=== PATIENT | female | born 1935 | race Caucasian/White ===

== ENCOUNTER 2017-06-11 16:17 | Inpatient (IN) | payer MEDICARE, OTHER ==
[~2017-06-11] VITALS: Ht 165.1 cm; Wt 67.6 kg
[2017-06-11] MEDS ORDERED: IOHEXOL 350 MG/ML 10 ML VIAL (for RAD DIAG) IVCONTRAST ONE (16:18)
[2017-06-11] MEDS ORDERED: SODIUM CHLOR 0.9% 1000 ML INJ 1,000 ML IV ONE ×2 (16:32→18:30)
[2017-06-11] MEDS ORDERED: PIPERACIL-TAZO 4.5 GM PREMIX 100 ML IV STA (16:32)
[2017-06-11] MEDS ORDERED: SODIUM CHLOR 0.9% 1000 ML INJ 800 ML IV ONE (16:32)
[2017-06-11] MEDS ORDERED: ACETAMINOPHEN 325 MG TAB PO ONE (16:45)
[2017-06-11 16:50] VITALS: BP 117/55; PULSE 78; RESP 22; TEMP 100.2; O2SAT 98
[2017-06-11 17:10] LABS: AUTOMATED NEUTROPHIL # 12.5 TH/MM3 (1.8-7.7); HEMATOCRIT 38.6 % (35.0-46.0); HEMOGLOBIN 12.8 GM/DL (11.6-15.3); LYMPH % 1.9 % (9.0-44.0); LYMPHOCYTE # 0.3 TH/MM3 (1.0-4.8); MEAN CELL VOLUME 85.7 FL (80.0-100.0); MEAN CORPUSCULAR HEMOGLOBIN 28.4 PG (27.0-34.0); MEAN CORPUSCULAR HGB CONC 33.2 % (32.0-36.0); MEAN PLATELET VOLUME 9.8 FL (7.0-11.0); MONO % 5.2 % (0.0-8.0); MONOCYTE # 0.7 TH/MM3 (0-0.9); NEUT % 92.9 % (16.0-70.0); PLATELET COUNT 125 TH/MM3 (150-450); RED CELL DISTRIBUTION WIDTH 13.9 % (11.6-17.2); WHITE BLOOD COUNT 13.5 TH/MM3 (4.0-11.0)
[2017-06-11 17:13] LABS: BACTERIA, URINE MANY /hpf; BILIRUBIN, URINE NEG (NEG); BLOOD, URINE SMALL (NEG); GLUCOSE,URINE NEG (NEG); KETONE, URINE TRACE mg/dL (NEG); NITRITE,URINE NEG (NEG); SQUAMOUS EPITHELIAL CELL URINE 1 /hpf (0-5); URINE COLOR YELLOW (YELLW/STRAW); URINE LEUKOCYTE ESTERASE LARGE (NEG)
[2017-06-11 17:15] LABS: INTERNATIONAL NORMALIZED RATIO 1.1 RATIO; PROTHROMBIN TIME - PATIENT 10.7 SEC (9.8-11.6)
--- NOTE | 2017-06-11 17:17 | PD ---
HPI Chief Complaint: Altered Mental Status Time Seen by Provider: 16:21 Travel History International Travel<30 days: No Contact w/Intl Traveler<30days: No History of Present Illness HPI Patient is 81 years old and arrives by EMS from home. The son called because yesterday the patient was able to ambulate throughout the house and conversed normally. Today she was much less active evidently lying in bed essentially inactive. EMS notes that that smell of urine. The patient was noted to have a fever as well the 100.2 axillary. History is limited by the patient who is agitated w altered mental status. PFSH Social History Tobacco Use: No Allergies-Medications (Allergen,Severity, Reaction): Coded Allergies: No Known Allergies (Unverified , 06/11/17) Reported Meds & Prescriptions Reported Meds & Active Scripts Active Active Prescriptions or Reported Medications Unobtainable Review of Systems ROS Limitations: Clinical Condition, Altered Mental Status General / Constitutional: Positive: Fever Physical Exam Narrative GENERAL: 81 yo F, agitated, unable to participate with history and physical exam Vital Signs Date Time Temp Pulse Resp B/P (MAP) Pulse Ox O2 Delivery O2 Flow Rate FiO2 06/11/17 17:27 98 Room Air 06/11/17 16:50 100.2 78 22 117/55 (75) 98 SKIN: Warm and dry. Erythema sacrum. HEAD: Atraumatic. Normocephalic. EYES: Pupils equal and round. No scleral icterus. No injection or drainage. ENT: No nasal bleeding or discharge. Mucous membranes pink and moist. NECK: Trachea midline. No JVD. CARDIOVASCULAR: Rate approx 80. Sinus. RESPIRATORY: No accessory muscle use. Clear to auscultation. Breath sounds equal bilaterally. GASTROINTESTINAL: Abdomen soft, non-tender, nondistended. Hepatic and splenic margins not palpable. MUSCULOSKELETAL: Extremities without clubbing, cyanosis, or edema. No obvious deformities. NEUROLOGICAL: No asymmetry about the face. The patient moving all extremities normally. She screams frequently and does not respond to questions. PSYCHIATRIC: Poor hygiene. Somewhat unkempt. Data Data Last Documented VS Vital Signs Date Time Temp Pulse Resp B/P (MAP) Pulse Ox O2 Delivery O2 Flow Rate FiO2 06/11/17 18:56 88 18 122/80 (94) 98 Room Air 06/11/17 16:50 100.2 VS reviewed Orders Orders Sepsis Workup Initiated (06/11/17 ) Complete Blood Count With Diff (06/11/17 16:32) Comprehensive Metabolic Panel (06/11/17 16:32) Prothrombin Time / Inr (Pt) (06/11/17 16:32) Act Partial Throm Time (Ptt) (06/11/17 16:32) Lactic Acid Sepsis Protocol (06/11/17 16:32) Magnesium (Mg) (06/11/17 16:32) Lipase (06/11/17 16:32) Ckmb (Isoenzyme) Profile (06/11/17 16:32) Troponin I (06/11/17 16:32) Urinalysis - C+S If Indicated (06/11/17 16:32) Blood Culture (06/11/17 16:32) Chest, Single Ap (06/11/17 16:32) Blood Glucose (06/11/17 16:32) Ecg Monitoring (06/11/17 16:32) Iv Access Insert/Monitor (06/11/17 16:32) Oximetry (06/11/17 16:32) Oxygen Administration (06/11/17 16:32) Acetaminophen (Tylenol) (06/11/17 16:45) Ct Abd/Pel W Iv Contrast(Rout) (06/11/17 16:32) Piperacil-Tazo 4.5 Gm Premix (Zosyn 4.5 (06/11/17 16:32) Sodium Chlor 0.9% 1000 Ml Inj (Ns 1000 M (06/11/17 16:32) Sodium Chlor 0.9% 1000 Ml Inj (Ns 1000 M (06/11/17 16:32) Ct Brain W/O Iv Contrast(Rout) (06/11/17 17:15) Urine Culture (06/11/17 16:30) Acetaminophen Supp (Tylenol Supp) (06/11/17 17:30) Vancomycin Inj (Vancomycin Inj) (06/11/17 17:45) CKMB (06/11/17 16:30) CKMB% (06/11/17 16:30) Electrocardiogram (06/11/17 ) Lorazepam Inj (Ativan Inj) (06/11/17 18:30) Sodium Chlor 0.9% 1000 Ml Inj (Ns 1000 M (06/11/17 18:30) Urinary Catheter Insert/Apply (06/11/17 18:17) Lorazepam Inj (Ativan Inj) (06/11/17 18:18) Iohexol 350 Inj (Omnipaque 350 Inj) (06/11/17 16:18) Admit To Inpatient (06/11/17 ) Vital Signs (Adult) Q4H (06/11/17 20:01) Activity Oob With Assistance (06/11/17 20:01) Brick Tester / Telemetry .CONTINUOUS (06/11/17 20:01) Diet Heart Healthy (06/12/17 Breakfast) Sodium Chloride 0.9% Flush (Ns Flush) (06/11/17 20:15) Sodium Chloride 0.9% Flush (Ns Flush) (06/11/17 21:00) Basic Metabolic Panel (Bmp) (06/12/17 06:00) Complete Blood Count With Diff (06/12/17 06:00) Pt Request For Service (06/11/17 20:01) Case Management Consult (06/11/17 20:01) Naloxone Inj (Narcan Inj) (06/11/17 20:15) Inpatient Certification (06/11/17 ) Vancomycin Consult Pharmacy (Vancomycin (06/11/17 20:15) Admit Order (Ed Use Only) (06/11/17 ) Vital Signs (Adult) Q4H (06/11/17 20:05) Activity Bed Rest (06/11/17 20:05) Notify Dr: Other (06/11/17 20:05) Piperacil-Tazo 4.5 Gm Premix (Zosyn 4.5 (06/12/17 00:00) Labs Laboratory Tests Test 06/11/17 16:30 White Blood Count 13.5 TH/MM3 Red Blood Count 4.50 MIL/MM3 Hemoglobin 12.8 GM/DL Hematocrit 38.6 % Mean Corpuscular Volume 85.7 FL Mean Corpuscular Hemoglobin 28.4 PG Mean Corpuscular Hemoglobin Concent 33.2 % Red Cell Distribution Width 13.9 % Platelet Count 125 TH/MM3 Mean Platelet Volume 9.8 FL Neutrophils (%) (Auto) 92.9 % Lymphocytes (%) (Auto) 1.9 % Monocytes (%) (Auto) 5.2 % Eosinophils (%) (Auto) 0.0 % Basophils (%) (Auto) 0.0 % Neutrophils # (Auto) 12.5 TH/MM3 Lymphocytes # (Auto) 0.3 TH/MM3 Monocytes # (Auto) 0.7 TH/MM3 Eosinophils # (Auto) 0.0 TH/MM3 Basophils # (Auto) 0.0 TH/MM3 CBC Comment DIFF FINAL Differential Comment Prothrombin Time 10.7 SEC Prothromb Time International Ratio 1.1 RATIO Activated Partial Thromboplast Time 24.7 SEC Urine Color YELLOW Urine Turbidity HAZY Urine pH 7.0 Urine Specific [place] 1.023 Urine Protein 30 mg/dL Urine Glucose (UA) NEG mg/dL Urine Ketones TRACE mg/dL Urine Occult Blood SMALL Urine Nitrite NEG Urine Bilirubin NEG Urine Urobilinogen LESS THAN 2.0 MG/DL Urine Leukocyte Esterase LARGE Urine RBC 1 /hpf Urine WBC 107 /hpf Urine Squamous Epithelial Cells 1 /hpf Urine Bacteria MANY /hpf Urine Granular Casts 3 /lpf Microscopic Urinalysis Comment CATH-CULTURE IND Blood Urea Nitrogen 34 MG/DL Creatinine 1.07 MG/DL Random Glucose 109 MG/DL Total Protein 7.2 GM/DL Albumin 2.8 GM/DL Calcium Level 7.7 MG/DL Magnesium Level 1.9 MG/DL Alkaline Phosphatase 67 U/L Aspartate Amino Transf (AST/SGOT) 86 U/L Alanine Aminotransferase (ALT/SGPT) 47 U/L Total Bilirubin 0.3 MG/DL Sodium Level 135 MEQ/L Potassium Level 4.5 MEQ/L Chloride Level 103 MEQ/L Carbon Dioxide Level 22.3 MEQ/L Anion Gap 10 MEQ/L Estimat Glomerular Filtration Rate 49 ML/MIN Lactic Acid Level 1.9 mmol/L Total Creatine Kinase 1584 U/L Creatine Kinase MB 10.0 NG/ML Creatine Kinase MB % 0.6 % Troponin I 1.40 NG/ML Lipase 93 U/L [facility] Medical Decision Making Medical Screen Exam Complete: Yes Emergency Medical Condition: Yes Differential Diagnosis Sepsis, severe sepsis, metabolic disarray, anemia, intracranial trauma or disease Narrative Course CBC & BMP Diagram 06/11/17 16:30 Total Protein 7.2, Albumin 2.8 L, Calcium Level 7.7 L, Magnesium Level 1.9, Alkaline Phosphatase 67, Aspartate Amino Transf (AST/SGOT) 86 H, Alanine Aminotransferase (ALT/SGPT) 47, Total Bilirubin 0.3 Neutrophils 93% Total CK is 1584 Lactic acid 1.9 Urinalysis shows a UTI EKG sinus tachycardia rate 100, LVH criteria The troponin is 1.4 The lipase is 93 In the setting of an elevated creatinine kinase 5084 and with mild renal insufficiency the elevated troponin at 1.4 is considered nonspecific 3 L of normal saline started. Zosyn and vancomycin started. The patient has a large density in the left chest concerning for pneumonia. CT abdomen and pelvis pending at time of dictation. Case discussed with the oncoming provider with plan to follow up CT results and admit patient medicine service. Critical Care Narrative Aggregate critical care time was 35 minutes. Time to perform other separately billable procedures was not included in the critical care time. My time did not include minutes spent treating any other patients simultaneously or on activities that did not directly contribute to the patient's treatment. The services I provided to this patient were to treat and/or prevent clinically significant deterioration that could result in: septic shock, MODS I provided critical care services requiring my management, as noted below: Chart data review, documentation time, medication orders and management, vital sign assessments/reviewing monitor data, ordering and reviewing lab tests, ordering and interpreting/reviewing x-rays and diagnostic studies, care of the patient and discussion of the patient with the admitting physicians. Sepsis Criteria SIRS Criteria (2 or more): Heart rate over 90, WBC > 00468, < 4000 or > 10% bands Sepsis Criteria (SIRS+source): Infect source susp/known Diagnosis Primary Impression: PNA (pneumonia) Qualified Codes: J18.9 - Pneumonia, unspecified organism Additional Impressions: UTI (urinary tract infection) Qualified Codes: N30.00 - Acute cystitis without hematuria Rhabdomyolysis Sepsis Admitting Information Admitting Physician Requests: Admit Scripts Unable to Obtain Active Prescriptions or Reported John Lombardi MD Jun 11, 2017 17:17
[2017-06-11 17:18] LABS: ALBUMIN 2.8 GM/DL (3.4-5.0); ALT (GPT) 47 U/L (10-53); AST (GOT) 86 U/L (15-37); BICARBONATE 22.3 MEQ/L (21.0-32.0); BLOOD UREA NITROGEN 34 MG/DL (7-18); CALCIUM 7.7 MG/DL (8.5-10.1); CHLORIDE 103 MEQ/L (98-107); CREATININE 1.07 MG/DL (0.50-1.00); GLOMERULAR FILTRATION RATE 49 ML/MIN (>89); GLUCOSE,RANDOM 109 MG/DL (74-106); MAGNESIUM 1.9 MG/DL (1.5-2.5); SODIUM (NA) 135 MEQ/L (136-145)
[2017-06-11] MEDS ORDERED: ACETAMINOPHEN 650 MG SUPP RECTAL ONE (17:30)
--- NOTE | 2017-06-11 17:30 | RADRPT ---
EXAM DATE/TIME: 06/11/2017 16:50 [facility] COMPARISON: No previous studies available for comparison. INDICATIONS : Altered mental status. MEDICAL HISTORY : None. SURGICAL HISTORY : None. ENCOUNTER: Initial ACUITY: 1 day PAIN SCORE: Non-responsive. LOCATION: Bilateral chest FINDINGS: Patchy opacity is noted throughout the left lung consistent with probable pneumonia. Clinical correla tion is recommended. The right lung is clear. The heart is normal. Degenerative changes and scoliosis of the thoracic spine are noted. CONCLUSION: 1. Patchy opacity within the left lung consistent with probable pneumonia. Correlation is recommended . 2. Degenerative changes and scoliosis of the thoracic spine. Efren Gutierrez MD on June 11, 2017 at 17:27 Board Certified Radiologist. This report was verified electronically.
[2017-06-11 17:31] LABS: ALKALINE PHOSPHATASE 67 U/L (45-117); TOTAL BILIRUBIN ADULT 0.3 MG/DL (0.2-1.0); TOTAL PROTEIN 7.2 GM/DL (6.4-8.2)
[2017-06-11] MEDS ORDERED: VANCOMYCIN INJ 1,250 MG in SODIUM CHLOR 0.9% 250 ML INJ 250 ML IV ONE (17:45)
[2017-06-11 18:00] VITALS: O2SAT 98
[2017-06-11] MEDS ORDERED: LORazepam 2 MG/ML VIAL ONE (18:18)
[2017-06-11] MEDS ORDERED: LORazepam 2 MG/ML VIAL IV PUSH ONE (18:30)
[2017-06-11 18:56] VITALS: BP 122/80; PULSE 88; RESP 18; O2SAT 98
--- NOTE | 2017-06-11 18:57 | RADRPT ---
EXAM DATE/TIME: 06/11/2017 18:25 [facility] COMPARISON: No previous studies available for comparison. INDICATIONS : Altered mental status. RADIATION DOSE: 56.35 CTDIvol (mGy) ; Patient motion MEDICAL HISTORY : Non-responsive. SURGICAL HISTORY : Non-responsive. ENCOUNTER: Initial ACUITY: 1 day PAIN SCALE: Non-responsive LOCATION: cranial TECHNIQUE: Multiple contiguous axial images were obtained of the head. Using automated exposure control and adj ustment of the mA and/or kV according to patient size, radiation dose was kept as low as reasonably a chievable to obtain optimal diagnostic quality images. DICOM format image data is available electro nically for review and comparison. FINDINGS: There is marked central and cortical atrophy with dilatation of ventricular and sulcal spaces. There is no parenchymal hemorrhage, acute infarction or mass lesion identified. There are no extra-axial fluid collections appreciated. The posterior fossa is unremarkable with midline fourth ventricle. T he portion of the orbits and paranasal sinuses visualized are unremarkable. CONCLUSION: No acute findings. Atrophy. David Camacho MD on June 11, 2017 at 18:54 Board Certified Radiologist. This report was verified electronically.
--- NOTE | 2017-06-11 19:05 | RADRPT ---
EXAM DATE/TIME: 06/11/2017 18:37 [facility] COMPARISON: No previous studies available for comparison. INDICATIONS : Fever, altered mental status. IV CONTRAST: 60 cc Omnipaque 350 (iohexol) IV ORAL CONTRAST: No oral contrast ingested. RADIATION DOSE: 8.37 CTDIvol (mGy) MEDICAL HISTORY : Non-responsive. SURGICAL HISTORY : Non-responsive. ENCOUNTER: Initial ACUITY: 1 day PAIN SCALE: Non-responsive LOCATION: lower quadrant TECHNIQUE: Volumetric scanning of the abdomen and pelvis was performed. Using automated exposure control and ad justment of the mA and/or kV according to patient size, radiation dose was kept as low as reasonably achievable to obtain optimal diagnostic quality images. DICOM format image data is available electro nically for review and comparison. FINDINGS: There is a confluent area of consolidation at the left lung base most consistent with bronchopneumoni a or aspiration. Mild right basilar opacity adjacent to a large hiatal hernia, probably compressive a telectasis. Bilobed 2 cm cyst left lobe liver. No acute findings in the liver, spleen, right adrenal or pancreas. Approximately 1.5 cm nodule left adrenal. Multiple bilateral nonobstructing renal calcifications whi ch appear to be mostly vascular. There is severe sigmoid diverticulosis. No definite evidence for diverticulitis. Right-sided bladder diverticulum measures about 3 cm in diameter. No acute bony abnormality. CONCLUSION: 1. Dense consolidation in the left lung base most characteristic of pneumonia or aspiration. 2. Large hiatal hernia. 3. Nonobstructing renal calcifications. 4. Severe sigmoid diverticulosis. 5. Right-sided bladder diverticulum. David Camacho MD on June 11, 2017 at 18:59 Board Certified Radiologist. This report was verified electronically.
--- NOTE | 2017-06-11 19:44 | PD ---
Physical Exam Date Seen by Provider: Jun 11, 2017 Narrative Care assumed from Dr. Martinez at [address] followed by admission. The patient presented to us with acutely altered mental status. She has been found to be uroseptic. Data Data Last Documented VS Vital Signs Date Time Temp Pulse Resp B/P (MAP) Pulse Ox O2 Delivery O2 Flow Rate FiO2 06/11/17 18:56 88 18 122/80 (94) 98 Room Air 06/11/17 16:50 100.2 Orders Orders Sepsis Workup Initiated (06/11/17 ) Complete Blood Count With Diff (06/11/17 16:32) Comprehensive Metabolic Panel (06/11/17 16:32) Prothrombin Time / Inr (Pt) (06/11/17 16:32) Act Partial Throm Time (Ptt) (06/11/17 16:32) Lactic Acid Sepsis Protocol (06/11/17 16:32) Magnesium (Mg) (06/11/17 16:32) Lipase (06/11/17 16:32) Ckmb (Isoenzyme) Profile (06/11/17 16:32) Troponin I (06/11/17 16:32) Urinalysis - C+S If Indicated (06/11/17 16:32) Blood Culture (06/11/17 16:32) Chest, Single Ap (06/11/17 16:32) Blood Glucose (06/11/17 16:32) Ecg Monitoring (06/11/17 16:32) Iv Access Insert/Monitor (06/11/17 16:32) Oximetry (06/11/17 16:32) Oxygen Administration (06/11/17 16:32) Acetaminophen (Tylenol) (06/11/17 16:45) Ct Abd/Pel W Iv Contrast(Rout) (06/11/17 16:32) Piperacil-Tazo 4.5 Gm Premix (Zosyn 4.5 (06/11/17 16:32) Sodium Chlor 0.9% 1000 Ml Inj (Ns 1000 M (06/11/17 16:32) Sodium Chlor 0.9% 1000 Ml Inj (Ns 1000 M (06/11/17 16:32) Ct Brain W/O Iv Contrast(Rout) (06/11/17 17:15) Urine Culture (06/11/17 16:30) Acetaminophen Supp (Tylenol Supp) (06/11/17 17:30) Vancomycin Inj (Vancomycin Inj) (06/11/17 17:45) CKMB (06/11/17 16:30) CKMB% (06/11/17 16:30) Electrocardiogram (06/11/17 ) Lorazepam Inj (Ativan Inj) (06/11/17 18:30) Sodium Chlor 0.9% 1000 Ml Inj (Ns 1000 M (06/11/17 18:30) Urinary Catheter Insert/Apply (06/11/17 18:17) Lorazepam Inj (Ativan Inj) (06/11/17 18:18) Iohexol 350 Inj (Omnipaque 350 Inj) (06/11/17 16:18) Admit To Inpatient (06/11/17 ) Vital Signs (Adult) Q4H (06/11/17 20:01) Activity Oob With Assistance (06/11/17 20:01) Student Development Coordinator / Telemetry .CONTINUOUS (06/11/17 20:01) Diet Heart Healthy (06/12/17 Breakfast) Sodium Chloride 0.9% Flush (Ns Flush) (06/11/17 20:15) Sodium Chloride 0.9% Flush (Ns Flush) (06/11/17 21:00) Basic Metabolic Panel (Bmp) (06/12/17 06:00) Complete Blood Count With Diff (06/12/17 06:00) Pt Request For Service (06/11/17 20:01) Case Management Consult (06/11/17 20:01) Naloxone Inj (Narcan Inj) (06/11/17 20:15) Inpatient Certification (06/11/17 ) Vancomycin Consult Pharmacy (Vancomycin (06/11/17 20:15) Piperacil-Tazo 4.5 Gm Premix (Zosyn 4.5 (06/11/17 23:55) Labs Laboratory Tests Test 06/11/17 16:30 White Blood Count 13.5 TH/MM3 Red Blood Count 4.50 MIL/MM3 Hemoglobin 12.8 GM/DL Hematocrit 38.6 % Mean Corpuscular Volume 85.7 FL Mean Corpuscular Hemoglobin 28.4 PG Mean Corpuscular Hemoglobin Concent 33.2 % Red Cell Distribution Width 13.9 % Platelet Count 125 TH/MM3 Mean Platelet Volume 9.8 FL Neutrophils (%) (Auto) 92.9 % Lymphocytes (%) (Auto) 1.9 % Monocytes (%) (Auto) 5.2 % Eosinophils (%) (Auto) 0.0 % Basophils (%) (Auto) 0.0 % Neutrophils # (Auto) 12.5 TH/MM3 Lymphocytes # (Auto) 0.3 TH/MM3 Monocytes # (Auto) 0.7 TH/MM3 Eosinophils # (Auto) 0.0 TH/MM3 Basophils # (Auto) 0.0 TH/MM3 CBC Comment DIFF FINAL Differential Comment Prothrombin Time 10.7 SEC Prothromb Time International Ratio 1.1 RATIO Activated Partial Thromboplast Time 24.7 SEC Urine Color YELLOW Urine Turbidity HAZY Urine pH 7.0 Urine Specific [place] 1.023 Urine Protein 30 mg/dL Urine Glucose (UA) NEG mg/dL Urine Ketones TRACE mg/dL Urine Occult Blood SMALL Urine Nitrite NEG Urine Bilirubin NEG Urine Urobilinogen LESS THAN 2.0 MG/DL Urine Leukocyte Esterase LARGE Urine RBC 1 /hpf Urine WBC 107 /hpf Urine Squamous Epithelial Cells 1 /hpf Urine Bacteria MANY /hpf Urine Granular Casts 3 /lpf Microscopic Urinalysis Comment CATH-CULTURE IND Blood Urea Nitrogen 34 MG/DL Creatinine 1.07 MG/DL Random Glucose 109 MG/DL Total Protein 7.2 GM/DL Albumin 2.8 GM/DL Calcium Level 7.7 MG/DL Magnesium Level 1.9 MG/DL Alkaline Phosphatase 67 U/L Aspartate Amino Transf (AST/SGOT) 86 U/L Alanine Aminotransferase (ALT/SGPT) 47 U/L Total Bilirubin 0.3 MG/DL Sodium Level 135 MEQ/L Potassium Level 4.5 MEQ/L Chloride Level 103 MEQ/L Carbon Dioxide Level 22.3 MEQ/L Anion Gap 10 MEQ/L Estimat Glomerular Filtration Rate 49 ML/MIN Lactic Acid Level 1.9 mmol/L Total Creatine Kinase 1584 U/L Creatine Kinase MB 10.0 NG/ML Creatine Kinase MB % 0.6 % Troponin I 1.40 NG/ML Lipase 93 U/L [facility] Supervised Visit with EILEEN: No Narrative Course Vital Signs Date Time Temp Pulse Resp B/P (MAP) Pulse Ox O2 Delivery O2 Flow Rate FiO2 06/11/17 18:56 88 18 122/80 (94) 98 Room Air 06/11/17 18:00 98 Room Air 06/11/17 17:27 98 Room Air 06/11/17 16:50 100.2 78 22 117/55 (75) 98 CBC & BMP Diagram 06/11/17 16:30 Total Protein 7.2, Albumin 2.8 L, Calcium Level 7.7 L, Magnesium Level 1.9, Alkaline Phosphatase 67, Aspartate Amino Transf (AST/SGOT) 86 H, Alanine Aminotransferase (ALT/SGPT) 47, Total Bilirubin 0.3 UA>>large LE, 107 WBCs, many bact. Last Impressions Head CT 06/11/17 1715 Signed Impressions: Service Date/Time: May 18:25 - CONCLUSION: No acute findings. Atrophy. David Camacho MD Chest X-Ray 06/11/17 1632 Signed Impressions: Service Date/Time: May 16:50 - CONCLUSION: 1. Patchy opacity within the left lung consistent with probable pneumonia. Correlation is recommended. 2. Degenerative changes and scoliosis of the thoracic spine. Efren Gutierrez MD Abdomen/Pelvis CT 06/11/17 1632 Signed Impressions: Service Date/Time: May 18:37 - CONCLUSION: 1. Dense consolidation in the left lung base most characteristic of pneumonia or aspiration. 2. Large hiatal hernia. 3. Nonobstructing renal calcifications. 4. Severe sigmoid diverticulosis. 5. Right-sided bladder diverticulum. David Camacho MD The patient has been empirically treated with Zosyn and vancomycin. Diagnosis Primary Impression: PNA (pneumonia) Qualified Codes: J18.9 - Pneumonia, unspecified organism Additional Impressions: Rhabdomyolysis Qualified Codes: M62.82 - Rhabdomyolysis Sepsis Qualified Codes: A41.9 - Sepsis, unspecified organism UTI (urinary tract infection) Qualified Codes: N30.00 - Acute cystitis without hematuria Admitting Information Admitting Physician Requests: Admit Scripts Unable to Obtain Active Prescriptions or Reported Meds Condition: Stable Mary Montana MD Jun 11, 2017 19:44
[2017-06-11] MEDS ORDERED: Vancomycin Consult Pharmacy 1 EA OTHER SCH (20:15)
[2017-06-11] MEDS ORDERED: NALOXONE HCL 0.4 MG/ML AMP IV PUSH PRN (20:15)
[2017-06-11] MEDS ORDERED: SODIUM CHLORIDE 0.9% FLUSH 10 ML FLUSH IV FLUSH PRN (20:15)
[2017-06-11 20:23] VITALS: BP 112/58; PULSE 84; RESP 16; O2SAT 98
--- NOTE | 2017-06-11 20:53 | HHI.HP ---
[facility] Admission Diagnosis pneumonia, UTI, rhabdo Diagnoses: Travel History International Travel<30 Days: No Contact w/Intl Traveler <30 Da: No Traveled to Known Affected Are: No History of Present Illness History from patient, ER physician communication, patient's son Efren over the phone, and review of medical records. Patient is somewhat of a poor historian. She is awake and alert but she is quite tired and would answer questions whenever she feels like. She was also given Ativan in ER for sedation which limits her history. Patient's son Efren is also not much of a good historian. It was quite hard to reach him throughout the night and when I got a chance to speak to him over the phone, he was quite slow in response. He however reports that patient has no Prior medical history. She used to go to Dr. Ybarra many years ago but has stopped going there. She is not on any medications at home. When asked about her surgical history, he reports that she has had colonoscopies prior. He reports that he was worried about her because she was not eating well. He stated she stopped eating " a long time ago". He then stated that she fell down "a bunch of times" within the past 1 week. He denies any vomiting episodes. He does not think that she had diarrhea. He reports he was the one cleaning her up mostly. He denies any fever. He states that he was not able to bring her by his car because she was not able to stand up. He therefore called 911. Per ER triage note, " pt from home, presents via evac altered. dirty, unkempt, full of urine and stool. smashed banana in hair. per evac, pt lives at home with son." Patient herself tells me that she did fall. She denies every symptoms on review of systems apart from shortness of breath. She also seems to be in pain during my interview and is moaning. However she is not able to pinpoint where. Review of Systems Except as stated in HPI: all other systems reviewed are Neg Past Family Social History Past Medical History None according to patient's son Past Surgical History Colonoscopies per son Reported Medications None Allergies: Coded Allergies: No Known Allergies (Unverified , 06/11/17) Family History None that patient is aware of Social History Denies smoking/alcohol abuse/drug abuse Physical Exam Vital Signs Vital Signs Date Time Temp Pulse Resp B/P (MAP) Pulse Ox O2 Delivery O2 Flow Rate FiO2 06/11/17 20:23 84 16 112/58 (76) 98 Room Air 06/11/17 18:56 88 18 122/80 (94) 98 Room Air 06/11/17 18:00 98 Room Air 06/11/17 17:27 98 Room Air 06/11/17 16:50 100.2 78 22 117/55 (75) 98 Physical Exam GENERAL: This is a elderly lady, in moderate distress from illness/pain. Saturating 90% on room air. Blood pressure 112/80. Pulse 80 SKIN: No rashes, ecchymoses or lesions. Cool and dry. HEAD: Atraumatic. Normocephalic. No temporal or scalp tenderness. EYES: No scleral icterus. No injection or drainage. ENT: Nose without bleeding, purulent drainage or septal hematoma. Airway patent. NECK: Trachea midline. No JVD. Supple, nontender, no meningeal signs. CARDIOVASCULAR: Regular rate and rhythm without gallops, or rubs. Systolic murmur throughout the precordium. Radiation to neck RESPIRATORY: Bilaterally decreased air entry. GASTROINTESTINAL: Abdomen soft, non-tender, nondistended. No guarding. MUSCULOSKELETAL: Extremities without clubbing, cyanosis, or edema. No calf tenderness. NEUROLOGICAL: Awake and alert although does not really want to answer questions much due to acute illness. Seems to be in pain. Motor and sensory grossly within normal limits. Normal speech.. Laboratory Laboratory Tests Test 06/11/17 16:30 White Blood Count 13.5 Red Blood Count 4.50 Hemoglobin 12.8 Hematocrit 38.6 Mean Corpuscular Volume 85.7 Mean Corpuscular Hemoglobin 28.4 Mean Corpuscular Hemoglobin Concent 33.2 Red Cell Distribution Width 13.9 Platelet Count 125 Mean Platelet Volume 9.8 Neutrophils (%) (Auto) 92.9 Lymphocytes (%) (Auto) 1.9 Monocytes (%) (Auto) 5.2 Eosinophils (%) (Auto) 0.0 Basophils (%) (Auto) 0.0 Neutrophils # (Auto) 12.5 Lymphocytes # (Auto) 0.3 Monocytes # (Auto) 0.7 Eosinophils # (Auto) 0.0 Basophils # (Auto) 0.0 CBC Comment DIFF FINAL Differential Comment Prothrombin Time 10.7 Prothromb Time International Ratio 1.1 Activated Partial Thromboplast Time 24.7 Urine Color YELLOW Urine Turbidity HAZY Urine pH 7.0 Urine Specific [place] 1.023 Urine Protein 30 Urine Glucose (UA) NEG Urine Ketones TRACE Urine Occult Blood SMALL Urine Nitrite NEG Urine Bilirubin NEG Urine Urobilinogen LESS THAN 2.0 Urine Leukocyte Esterase LARGE Urine RBC 1 Urine WBC 107 Urine Squamous Epithelial Cells 1 Urine Bacteria MANY Urine Granular Casts 3 Microscopic Urinalysis Comment CATH-CULTURE IND Blood Urea Nitrogen 34 Creatinine 1.07 Random Glucose 109 Total Protein 7.2 Albumin 2.8 Calcium Level 7.7 Magnesium Level 1.9 Alkaline Phosphatase 67 Aspartate Amino Transf (AST/SGOT) 86 Alanine Aminotransferase (ALT/SGPT) 47 Total Bilirubin 0.3 Sodium Level 135 Potassium Level 4.5 Chloride Level 103 Carbon Dioxide Level 22.3 Anion Gap 10 Estimat Glomerular Filtration Rate 49 Lactic Acid Level 1.9 Total Creatine Kinase 1584 Creatine Kinase MB 10.0 Creatine Kinase MB % 0.6 Troponin I 1.40 Lipase 93 Date/Time Source Procedure Growth Status 06/11/17 16:35 Blood Peripheral Aerobic Blood Culture Pending Received 06/11/17 16:35 Blood Peripheral Anaerobic Blood Culture Pending Received 06/11/17 16:30 Urine Clean Catch Urine Culture Pending Received Result Diagram: 06/11/17 1630 06/11/17 1630 Imaging Last [address] 06/11/17 1715 Signed Impressions: Service Date/Time: May 18:25 - CONCLUSION: No acute findings. Atrophy. David Camacho MD Chest X-Ray 06/11/17 1632 Signed Impressions: Service Date/Time: May 16:50 - CONCLUSION: 1. Patchy opacity within the left lung consistent with probable pneumonia. Correlation is recommended. 2. Degenerative changes and scoliosis of the thoracic spine. Efren Gutierrez MD Abdomen/Pelvis CT 06/11/17 1632 Signed Impressions: Service Date/Time: May 18:37 - CONCLUSION: 1. Dense consolidation in the left lung base most characteristic of pneumonia or aspiration. 2. Large hiatal hernia. 3. Nonobstructing renal calcifications. 4. Severe sigmoid diverticulosis. 5. Right-sided bladder diverticulum. David Camacho MD Lower Extremity CT 06/11/17 0000 Signed Impressions: Service Date/Time: May 22:06 - CONCLUSION: 1. Moderate to severe osteoarthritis. Trace joint fluid. David Camacho MD Lower Extremity CT 06/11/17 0000 Signed Impressions: Service Date/Time: May 22:06 - CONCLUSION: 1. No acute femur fracture. David Camacho MD Caprini VTE Risk Assessment Caprini VTE Risk Assessment: Mod/High Risk (score >= 2) Caprini Risk Assessment Model Point Value = 1 Point Value = 2 Point Value = 3 Point Value = 5 Age 41-60 Minor surgery BMI > 25 kg/m2 Swollen legs Varicose veins or History of unexplained or recurrent spontaneous Oral contraceptives or hormone replacement Sepsis (< 1 month) Serious lung disease, including pneumonia (< 1 month) Abnormal pulmonary function Acute myocardial infarction Congestive heart failure (< 1 month) History of inflammatory bowel disease Medical patient at bed rest Age 61-74 Arthroscopic surgery Major open surgery (> 45 min) Laparoscopic surgery (> 45 min) Malignancy Confined to bed (> 72 hours) Immobilizing plaster cast Central venous access Age >= 75 History of VTE Family history of VTE Factor V Leiden Prothrombin [id number] Lupus anticoagulant Anticardiolipin antibodies Elevated serum homocysteine Heparin-induced thrombocytopenia Other congenital or acquired thrombophilia Stroke (< 1 month) Elective arthroplasty Hip, pelvis, or leg fracture Acute spinal cord injury (< 1 month) Prophylaxis Regimen Total Risk Factor Score Risk Level Prophylaxis Regimen 0-1 Low Early ambulation 2 Moderate Order ONE of the following: *Sequential Compression Device (SCD) *Heparin 5000 units SQ BID 3-4 Higher Order ONE of the following medications: *Heparin 5000 units SQ TID *Enoxaparin/Lovenox 40 mg SQ daily (WT < 150 kg, CrCl > 30 mL/min) *Enoxaparin/Lovenox 30 mg SQ daily (WT < 150 kg, CrCl > 10-29 mL/min) *Enoxaparin/Lovenox 30 mg SQ BID (WT < 150 kg, CrCl > 30 mL/min) AND/OR *Sequential Compression Device (SCD) 5 or more Highest Order ONE of the following medications: *Heparin 5000 units SQ TID (Preferred with Epidurals) *Enoxaparin/Lovenox 40 mg SQ daily (WT < 150 kg, CrCl > 30 mL/min) *Enoxaparin/Lovenox 30 mg SQ daily (WT < 150 kg, CrCl > 10-29 mL/min) *Enoxaparin/Lovenox 30 mg SQ BID (WT < 150 kg, CrCl > 30 mL/min) AND *Sequential Compression Device (SCD) Assessment and Plan Assessment and Plan Impression: Sepsis Pneumonia UTI Dehydration Rhabdomyolysis Acute renal failure Leukocytosis with left shift Hypoxia secondary to pneumonia Aortic stenotic murmur Plan: Patient received 2 L normal saline bolus in ER. She was started on vancomycin, Zosyn per creatinine clearance and levels. At this point, I would continue same antibiotic regimen. We'll follow blood culture and urine culture results. Not suspecting meningitis. Patient is quite awake and alert although she is a poor historian. She denies any headache/neck pain/photophobia. Oxygen supplementation. Would obtain echocardiogram as patient has aortic stenotic murmur. However unlikely that this is endocarditis. We'll follow renal function and CPKs post hydration. We'll reassess hydration status in the morning since patient is elderly, with aortic stenosis murmur and possibly having concomitant CHF. Patient is also receiving IV antibiotics. Echocardiogram in a.m. DVT prophylaxis on heparin. GI prophylaxis on pantoprazole. Discussed Condition With patient, her son, ER nurse, ER MD Physician Certification 2 Midnight Certification Type: Admission for Inpatient Services Order for Inpatient Services The services are ordered in accordance with Medicare regulations or non- Medicare payer requirements, as applicable. In the case of services not specified as inpatient-only, they are appropriately provided as inpatient services in accordance with the 2-midnight benchmark. Estimated LOS (days): 4 days is the estimated time the patient will need to remain in the hospital, assuming treatment plan goals are met and no additional complications. Post-Hospital Plan: Home Casimiro Nicholas MD Jun 11, 2017 20:53
[2017-06-11] MEDS: [UNRECOGNIZED DRUG - REMARK] SCH (21:30)
[2017-06-11 21:37] VITALS: BP_SYST 123; BP_SYST 138; BP_DIAS 66; BP_DIAS 71; PULSE 74; PULSE 78; RESP 18; TEMP 97.2; TEMP 98.9; O2SAT 94; O2SAT 96
[2017-06-11 21:48] VITALS: BP 138/71; PULSE 74; RESP 18; TEMP 98.9; O2SAT 96
--- NOTE | 2017-06-11 22:44 | RADRPT ---
EXAM DATE/TIME: 06/11/2017 22:06 [facility] COMPARISON: No previous studies available for comparison. INDICATIONS : Trauma, fall. RADIATION DOSE: 11.38 CTDIvol (mGy) ; Combined studies MEDICAL HISTORY : Non-responsive. SURGICAL HISTORY : Non-responsive. ENCOUNTER: Initial ACUITY: 1 day PAIN SCALE: Non-responsive LOCATION: Right leg TECHNIQUE: Volumetric scanning of the femur was performed. Using automated exposure control and adjustment of t he mA and/or kV according to patient size, radiation dose was kept as low as reasonably achievable to obtain optimal diagnostic quality images. DICOM format image data is available electronically for review and comparison. FINDINGS: No acute fracture seen. Osteoarthritis of the knee joint and severe osteoarthritis at the patellofemo ral joint. CONCLUSION: 1. No acute femur fracture. David Camacho MD on June 11, 2017 at 22:39 Board Certified Radiologist. This report was verified electronically.
--- NOTE | 2017-06-11 22:45 | RADRPT ---
EXAM DATE/TIME: 06/11/2017 22:06 [facility] COMPARISON: No previous studies available for comparison. INDICATIONS : Trauma, fall. RADIATION DOSE: 11.38 CTDIvol (mGy) ; Combined studies MEDICAL HISTORY : Non-responsive. SURGICAL HISTORY : Non-responsive. ENCOUNTER: Initial ACUITY: 1 day PAIN SCALE: Non-responsive LOCATION: Right knee TECHNIQUE: Volumetric scanning of the knee was performed. Using automated exposure control and adjustment of th e mA and/or kV according to patient size, radiation dose was kept as low as reasonably achievable to obtain optimal diagnostic quality images. DICOM format image data is available electronically for re view and comparison. FINDINGS: Mild to moderate osteoarthritis of the knee joint. Severe osteoarthritis at the patellofemoral joint with lateral subluxation. Trace joint fluid. No acute fracture identified CONCLUSION: 1. Moderate to severe osteoarthritis. Trace joint fluid. David Camacho MD on June 11, 2017 at 22:41 Board Certified Radiologist. This report was verified electronically.
[2017-06-12 00:10] VITALS: BP 129/76; PULSE 79; RESP 20; TEMP 97.8; O2SAT 92
[2017-06-12] MEDS: SODIUM CHLORIDE 0.9% FLUSH 10 ML FLUSH IV FLUSH SCH ×3 (01:09→22:38)
[2017-06-12] MEDS: PIPERACIL-TAZO 4.5 GM PREMIX 100 ML IV SCH ×5 (01:09→22:36)
[2017-06-12] MEDS: [UNRECOGNIZED DRUG - REMARK] SCH (01:10)
[2017-06-12 05:20] VITALS: BP 118/67; PULSE 80; RESP 20; TEMP 98.7; O2SAT 91
[2017-06-12 09:00] VITALS: BP 101/56; PULSE 74; RESP 16; TEMP 97.5; O2SAT 92
[2017-06-12] MEDS: PANTOPRAZOLE SOD 40 MG DELAYED RELEASE TAB PO SCH (09:14)
[2017-06-12] MEDS: HEPARIN SODIUM - SQ 10,000 UNITS/ML VIAL SQ SCH ×2 (09:14→22:39)
--- NOTE | 2017-06-12 11:05 | PD.CONS ---
Consult Service Palliative Care . Consult Requested By . Primary Care Physician Unknown Used to see Tate, but I do not believe she has seen a physician in years. . Reason for Consultation a. To assist with evaluation and management of symptoms including: dyspnea ; generalized pain; confusion b. To assist medical decision maker(s) with: better understanding of current medical conditions; weighing benefits/burdens of medical treatment options; making medical treatment decisions. . HPI History of Present Illness It is currently impossible to obtain a good history on this patient. The patient is quite confused. Her son who was at the bedside at the time of my visit, also appears to have altered mental status and may be quite ill himself. I arranged to have him taken to the emergency department while I was at the bedside. The history below is taken from the limited medical records available and piecing some information together from the son. I have no idea if the information from the son is reliable or not. This is the first [facility] hospitalization for this 81-year-old female who is past history remains a mystery as neither her nor her son are able to provide much information. Son reports that the patient is normally verbal but confused and only recognizes him intermittently. When I ask what prompted the son to call the paramedics, he tells me that his mother asked him to do so. I asked if she was painful or appeared short of breath and he said he did not know. The emergency department doctors were told that the patient had been able to ambulate up until recently, but the son tells me the patient may have been nonambulatory and bedbound for months if not years. As best I can tell, the patient lives with her son who is unemployed and is her full-time caregiver. Son reports he has been unable to bathe her. He usually tries to carry her to the bathroom. Son is able to do the grocery shopping and feeds his mother but he told Dr. Nicholas that her appetite have been greatly diminished of late. There have also been multiple falls recently. Per the son, the patient had not been having fevers, vomiting, diarrhea. The patient has not seen a physician for possibly years. The son shares that the the household is entirely dependent on Ms Moffett's Social Security check which is direct deposited. Upon arrival in the emergency department the patient was agitated. EMS noted the smell of urine on arrival. The ER triage note indicated that upon arrival the patient was dirty, unkempt, full of urine and stool, and with smashed banana in her hair. Initial vital signs in the emergency department were as follows--> temperature 100.2; pulse 78; respiratory rate 22; blood pressure 117/55; pulse oximetry 98% on room air Initial physical examination by the emergency department store salesperson revealed the following--> the patient was somewhat unkempt with poor hygiene. The patient was screaming frequently and was unable to respond to questions. There is erythema overlying the sacrum. Mucous membranes were moist. Lungs were clear to auscultation without accessory muscle use. Abdomen was soft and nondistended. The patient moves all extremities. Initial diagnostic testing revealed the following: * CBC showed WBC 13.5; hemoglobin 12.8; platelet count 125; MCV 85.7 * Coagulation profile showed PT 10.7; INR 1.1 * Urinalysis was remarkable for protein of 30 mg/dL; trace ketones; small occult blood; large leukocyte esterase; 107 WBCs; many bacteria * Chemistry profile showed sodium 135; potassium 4.5; chloride 103; CO2 22.3; BUN 34; creatinine 1.07; GFR 49; glucose 109; lactic acid 1.9; calcium 7.7; magnesium 1.9 * Liver function studies showed total bilirubin 0.3; AST 86; ALT 47; alkaline phosphatase 67; total protein 7.2; albumin 2.8 * Cardiac serology showed troponin I 0.4; total CK 1584; CK-MB 10; CK-MB percent 0.6 * EKG showed a sinus tachycardia with a rate of 100 * Head CT showed no acute findings * Chest x-ray showed probable pneumonia in the left lung as well as degenerative changes in the spine * CT of the abdomen/pelvis showed dense consolidation in the left lung base most consistent with pneumonia or aspiration. There is also a large hiatal hernia; nonobstructing renal calcifications; severe sigmoid diverticulosis. The patient's elevated troponin was considered nonspecific in the setting of the elevated total CK. The patient was started on fluid resuscitation with 3 L of normal saline. Empiric Zosyn and vancomycin were started in the emergency department. [facility] secondary to a likely urinary tract infection and pneumonia. At the time of my visit, the patient is verbal but is unable to answer basic questions such as how many children she has and the year. Touching her almost anywhere results in her yelling out. Her nurse reports that she was able to eat a little bit and drinks some orange juice without evidence of coughing or choking. . Function/Cognitive Trajectory Since neither the patient nor her son are reliable historians it is impossible to get a sense of illness trajectory here. The ER physicians were told that the patient was ambulatory relatively recently. I was told that the patient has been bedbound for months if not years and the son was carrying her back and forth to the bathroom. He indicated he had been unable to bathe her for some time. . Review of Systems ROS Limitations: Clinical Condition (Patient is unable to provide her own history due to confusion. Son is unable to provide any type of reliable history.) Past Family Social History Coded Allergies: No Known Allergies (Unverified , 06/11/17) Past Medical History No reliable history available. . Past Surgical History Colonoscopies per son . Reported Medications According to the son, the patient is on no medications at home and has not been on medications for some time. . Current Medications Medications (Trade) Dose Ordered Sig/Anthony Route Start Time Stop Time Status Last Admin (NS Flush) 2 ml UNSCH PRN IV FLUSH 06/11/17 20:15 (NS Flush) 2 ml BID IV FLUSH 06/11/17 21:00 06/12/17 09:14 (Narcan Inj) 0.4 mg UNSCH PRN IV PUSH 06/11/17 20:15 Pharmacy Profile Note 0 ml @ 0 mls/hr UNSCH OTHER 06/11/17 20:15 Piperacillin Sod/ Tazobactam Sod 100 ml @ 200 mls/hr Q6H IV 06/12/17 00:00 06/12/17 05:27 (Heparin Inj) 5,000 units Q12HR SQ 06/12/17 09:00 06/12/17 09:14 (Protonix) 40 mg DAILY PO 06/12/17 09:00 06/12/17 09:14 Vancomycin HCl 1000 mg/Sodium Chloride 250 ml @ 250 mls/hr Q24H IV 06/12/17 18:00 Miscellaneous Information SPECIFIC LAB TO BE DRAWN:VANCOMY... ONCE ONCE .XX 06/14/17 17:45 06/14/17 17:46 . Family History The patient's mother had Alzheimer's disease or some other type of dementia. Son does not know if the patient's father of. All the patient's siblings (Sorin, Kunal, Chapis) are but son does not know their cause of . Substance Use Tobacco: Patient was a cigarette smoker. Son cannot tell me how much she smoked her when she stopped. Alcohol: Son reports no history of alcohol abuse. Prescription med abuse: Son reports no history of prescription drug abuse. Illicits: No known use of illicits . Psychosocial History Patient is originally from [place]. Son believes she moved to [place] around 1989. Patient was once. She has been for many years. Son reports the patient had 2 children. The son believes that his sister-- Yarelis --lives in [place]. He tells me that Yarelis has not communicated with the family for approximately 3 years. He has no contact information for Yarelis. The household reportedly lives off the patient's Social Security income. . Spiritual/Cultural Factors Son tells me that the patient comes from a Hoahaoism tradition. She does not belong to any local jd community. . Living Will: Never completed Health Care Surrogate: Never completed Durable Power of Geodetic Surveyor Technologist: Never completed Date completed: Advanced directives were never completed as far as I know. . Health Care Surrogate(s): We have no written designation of healthcare surrogate. . Documented care wishes: We have no written documentation of the patient's healthcare goals and preferences. . Today's verbally stated goals: Patient is confused and is unable to provide verbal healthcare goals or preferences at this time. . Family/friends goals: The patient's son appears to have some altered mental status at the time of my visit. He is therefore unable to provide information on the patient's healthcare goals and preferences. . Ethical and Legal Issues Patient is currently incapacitated to make her own healthcare decisions. I am uncertain at this time if her incapacity is due to her current illness and may be reversible or if this is due to some sort of underlying dementia or other encephalopathy. I am told that the patient was many years ago. In that case decision making for healthcare would fall to her 2 children -- Efren and Yarelis. We currently have no contact information for Yarelis, and during my visit with the patient today, I sent the patient's son to the emergency department because he appeared to have some altered mental status. . Physical Exam Vital Signs Date Time Temp Pulse Resp B/P (MAP) Pulse Ox O2 Delivery O2 Flow Rate FiO2 06/12/17 09:00 97.5 74 16 101/56 (71) 92 06/12/17 05:20 98.7 80 20 118/67 (84) 91 06/12/17 00:10 97.8 79 20 129/76 (93) 92 06/11/17 21:37 97.2 78 18 123/66 (85) 94 06/11/17 21:17 06/11/17 20:23 84 16 112/58 (76) 98 Room Air 06/11/17 18:56 88 18 122/80 (94) 98 Room Air 06/11/17 18:00 98 Room Air 06/11/17 17:27 98 Room Air 06/11/17 16:50 100.2 78 22 117/55 (75) 98 . Exam CONSTITUTIONAL/GENERAL: This is an adequately nourished patient who is verbal but clearly confused. She is unable to answer questions about symptoms and does not know how many children she has. She yells out when she is touched anywhere even if touch is quite gentle. TUBES/LINES/DRAINS: Peripheral IV; nasal cannula oxygen SKIN: No jaundice, rashes. There are areas of erythema on the right abdomen, left ankle, left fifth digit, left lateral foot, right heel, left heel, and right buttock. Feet are slightly mottled. Skin temperature appropriate. Not diaphoretic. HEAD: Atraumatic. Normocephalic. EYES: Pupils equal and round and reactive. Extraocular motions intact. No scleral icterus. No injection or drainage. Fundi not examined. ENT: Hearing grossly normal. Nose without bleeding or purulent drainage. Throat without visible erythema, exudates, masses, or lesions. NECK: Trachea midline. No palpable thyroid enlargement or nodularity. CARDIOVASCULAR: Regular rate and rhythm without murmurs, gallops, or rubs. No JVD. Peripheral pulses symmetric. RESPIRATORY/CHEST: Symmetric, unlabored respirations. Breath sounds equal bilaterally with scattered coarse rhonchi. No wheezes. GASTROINTESTINAL: Abdomen soft. Patient yells out when I palpate her abdomen but she yells out when I palpate almost anywhere. No hepato-splenomegaly, or palpable masses. No guarding. Bowel sounds present. GENITOURINARY: Without palpable bladder distension. MUSCULOSKELETAL: Distal feet slightly cyanotic. No edema. LYMPHATICS: No palpable cervical or supraclavicular adenopathy. NEUROLOGICAL: Awake and alert. Motor and sensory grossly within normal limits. Follows some very simple commands. Mostly confused. Moves all extremities. PSYCHIATRIC: No obvious anxiety/depression. No apparent hallucinations or other psychotic thought process. . Diagnostic Tests Laboratory Laboratory Tests Test 06/11/17 16:30 White Blood Count 13.5 TH/MM3 (4.0-11.0) Red Blood Count 4.50 MIL/MM3 (4.00-5.30) Hemoglobin 12.8 GM/DL (11.6-15.3) Hematocrit 38.6 % (35.0-46.0) Mean Corpuscular Volume 85.7 FL (80.0-100.0) Mean Corpuscular Hemoglobin 28.4 PG (27.0-34.0) Mean Corpuscular Hemoglobin Concent 33.2 % (32.0-36.0) Red Cell Distribution Width 13.9 % (11.6-17.2) Platelet Count 125 TH/MM3 (150-450) Mean Platelet Volume 9.8 FL (7.0-11.0) Neutrophils (%) (Auto) 92.9 % (16.0-70.0) Lymphocytes (%) (Auto) 1.9 % (9.0-44.0) Monocytes (%) (Auto) 5.2 % (0.0-8.0) Eosinophils (%) (Auto) 0.0 % (0.0-4.0) Basophils (%) (Auto) 0.0 % (0.0-2.0) Neutrophils # (Auto) 12.5 TH/MM3 (1.8-7.7) Lymphocytes # (Auto) 0.3 TH/MM3 (1.0-4.8) Monocytes # (Auto) 0.7 TH/MM3 (0-0.9) Eosinophils # (Auto) 0.0 TH/MM3 (0-0.4) Basophils # (Auto) 0.0 TH/MM3 (0-0.2) CBC Comment DIFF FINAL Differential Comment Prothrombin Time 10.7 SEC (9.8-11.6) Prothromb Time International Ratio 1.1 RATIO Activated Partial Thromboplast Time 24.7 SEC (24.3-30.1) Urine Color YELLOW (YELLW/STRAW) Urine Turbidity HAZY (CLEAR) Urine pH 7.0 (5.0-8.5) Urine Specific [place] 1.023 (1.002-1.035) Urine Protein 30 mg/dL (NEG-TRACE) Urine Glucose (UA) NEG mg/dL (NEG) Urine Ketones TRACE mg/dL (NEG) Urine Occult Blood SMALL (NEG) Urine Nitrite NEG (NEG) Urine Bilirubin NEG (NEG) Urine Urobilinogen LESS THAN 2.0 MG/DL (LESS Urine Leukocyte Esterase LARGE (NEG) Urine RBC 1 /hpf (0-3) Urine WBC 107 /hpf (0-5) Urine Squamous Epithelial Cells 1 /hpf (0-5) Urine Bacteria MANY /hpf (NONE) Urine Granular Casts 3 /lpf (NONE) Microscopic Urinalysis Comment CATH-CULTURE IND Blood Urea Nitrogen 34 MG/DL (7-18) Creatinine 1.07 MG/DL (0.50-1.00) Random Glucose 109 MG/DL (74-106) Total Protein 7.2 GM/DL (6.4-8.2) Albumin 2.8 GM/DL (3.4-5.0) Calcium Level 7.7 MG/DL (8.5-10.1) Magnesium Level 1.9 MG/DL (1.5-2.5) Alkaline Phosphatase 67 U/L (45-117) Aspartate Amino Transf (AST/SGOT) 86 U/L (15-37) Alanine Aminotransferase (ALT/SGPT) 47 U/L (10-53) Total Bilirubin 0.3 MG/DL (0.2-1.0) Sodium Level 135 MEQ/L (136-145) Potassium Level 4.5 MEQ/L (3.5-5.1) Chloride Level 103 MEQ/L (98-107) Carbon Dioxide Level 22.3 MEQ/L (21.0-32.0) Anion Gap 10 MEQ/L (5-15) Estimat Glomerular Filtration Rate 49 ML/MIN (>89) Lactic Acid Level 1.9 mmol/L (0.4-2.0) Total Creatine Kinase 1584 U/L (26-192) Creatine Kinase MB 10.0 NG/ML (0.5-3.6) Creatine Kinase MB % 0.6 % (0.0-4.0) Troponin I 1.40 NG/ML (0.02-0.05) Lipase 93 U/L (73-393) . Result Diagram: 06/11/17 1630 06/11/17 1630 Microbiology Microbiology Date/Time Source Procedure Growth Status 06/11/17 16:35 Blood Peripheral Aerobic Blood Culture Pending Received 06/11/17 16:35 Blood Peripheral Anaerobic Blood Culture Pending Received 06/11/17 16:30 Blood Peripheral Aerobic Blood Culture Pending Received 06/11/17 16:30 Blood Peripheral Anaerobic Blood Culture Pending Received 06/11/17 16:30 Urine Clean Catch Urine Culture Pending Received . Imaging Last Impressions Head CT 06/11/17 1715 Signed Impressions: Service Date/Time: May 18:25 - CONCLUSION: No acute findings. Atrophy. David Camacho MD Chest X-Ray 06/11/171631 Signed Impressions: Service Date/Time: May 16:50 - CONCLUSION: 1. Patchy opacity within the left lung consistent with probable pneumonia. Correlation is recommended. 2. Degenerative changes and scoliosis of the thoracic spine. Efren Gutierrez MD Abdomen/Pelvis CT 06/11/171631 Signed Impressions: Service Date/Time: May 18:37 - CONCLUSION: 1. Dense consolidation in the left lung base most characteristic of pneumonia or aspiration. 2. Large hiatal hernia. 3. Nonobstructing renal calcifications. 4. Severe sigmoid diverticulosis. 5. Right-sided bladder diverticulum. David Camacho MD Lower Extremity CT 06/11/17 0000 Signed Impressions: Service Date/Time: May 22:06 - CONCLUSION: 1. Moderate to severe osteoarthritis. Trace joint fluid. David Camacho MD . Patient/Family Conference Present at Family Conference: Son Family Conference Time (mins): 25 Family Conference Location: Bedside Issues Discussed: I tried to get a reliable and reproducible history from the patient's son. He had difficulty answering most questions. It appeared he did not feel well but could not describe what was going on. By the end of 25 minutes I became quite concerned that the information I was getting may not be reliable. I also became concerned about the son's well-being. I recommend that he be evaluated in the emergency department and he quickly agreed saying, "I think I have to do it." . Assessment and Plan Disease Oriented Problem List: (1) PNA (pneumonia) (2) UTI (urinary tract infection) (3) Sepsis (4) Rhabdomyolysis (5) Hypoalbuminemia Symptom Scale: (1) Pain 0-10 Scale: Unable to quantify Comment: The patient yells out with even mild touch to any part of her body. Because of her confusion it is impossible to obtain information that would qualify or quantify her pain. . (2) Dyspnea 0-10 Scale: Unable to quantify Comment: Because of her confusion patient is unable to give additional information on her shortness of breath. (3) Agitation 0-10 Scale: Unable to quantify (4) Confusion 0-10 Scale: Unable to quantify Comment: It remains unclear if patient's confusion is an acute delirium secondary to her current illness, or if there is an underlying dementia or other long-term encephalopathy. If it is the former, we should see improvement as the patient's infection clears. . Pertinent Non-Medical Issues Psychosocial: Has been living with son. I have concerns regarding whether or not the son is able to continue caring for her. There also may be a daughter who lives in [place] for whom we have no contact information. Spiritual: From a Hoahaoism tradition. Uncertain if sikhism and spirituality ever played an important role in her life. Legal: There are no written advanced directives as far as we know. While patient is incapacitated, given that we are told she is , healthcare decision making would fall to her 2 children. Of her 2 children, we currently are only able to contact her son. Ethical issues impacting care: Patient appears incapacitated at this time. It remains unclear if she will ever be able to regain capacity to make her own healthcare decisions. . Important Contacts Efren Moffett (son) [phone] . Prognosis I anticipate we will be able to get this patient through her acute problems of pneumonia and urinary tract infection and sepsis. What is less clear is her long-term prognosis. I do not know if her acute infections are the result of progressive end-stage dementia or some other underlying progressive illness. . Code Status: Full Code (We really do not have a adequate decision maker yet on this patient. She will remain full code until we have such a decision maker.) Plan == CODE STATUS: FULL CODE == Decision making: Patient is currently incapacitated to make her own healthcare decisions. It is unclear if she will ever regain capacity to do so. Given I am told the patient is , healthcare decision making would fall to her 2 children--Efren and Yarelis. However, we have no contact information for Felicita at this time. == Goals of medical treatment: We do not have a reliable healthcare decision maker at this point. For that reason we are obligated to continue with aggressive care including "full code" status. == Symptoms * Pain: Patient is unable to describe or quantify her pain due to her confusion /encephalopathy. She currently yells out when she is touched almost anywhere. Given her altered mental status, we would want to avoid additional sedation as much as possible. We might recheck her liver function studies. If these are back to normal, I would recommend scheduling 650 mg of acetaminophen every 8 hours [id number]. * Dyspnea: This will be better managed if patient kept her oxygen in place. She continuously pulls her nasal cannula off. We may need to consider restraints unless O2 saturations off supplemental oxygen improved. Anticipate improvement in dyspnea once patient starts responding to the antibiotics. * agitation: This is probably part of a multifactorial delirium. A new environment and new caregivers are likely to exacerbate this. If nonpharmacologic methods do not work, we may want to consider very low-dose haloperidol at 0.5 mg every 12 hours. Given her altered mental status, would want to avoid benzodiazepines or other more sedating medications if possible. * Confusion: Still unclear if this is an acute problem due to her acute illness or if there is significant underlying dementia or encephalopathy. This should become apparent as her infections resolved. == Disposition : It does not appear that the patient's son will be able to continue to care for her. She would benefit from nursing home following this hospitalization. She may need long-term placement following her skilled days if son is no longer able to care for her. == We will need to reevaluate daily for patient's capacity to make her own healthcare decisions. == Palliative care will work with case management to see if we can locate the patient's daughter or other family who may be able to help with decision-making. == Palliative care will continue to follow to assist with symptom management and to further clarify goals of medical treatment as the clinical course evolves. . Thank you for the opportunity to participate in the care of Ms. Moffett. . Attestation To help prompt me to consider important information that might be impacting today's encounter and assessment, information from prior notes written by myself or my colleagues may have been "brought forward" into today's note. My signature on this note, however, is an attestation that I personally performed the exam, history, and/or decision-making noted today, and, unless otherwise indicated, the interactions with patient, family, and staff as well as the review of records all occurred today. I also attest that the listed assessment and stated plan reflect my best clinical judgment today based on the combination of historical information, prior notes, and today's exam/ interactions. When time spent is documented, it refers only to time spent today by the signer, or if indicated, combined time spent today by collaborating physician/nurse practitioner. . Les Guadarrama MD Jun 12, 2017 11:05
--- NOTE | 2017-06-12 11:51 | HHI.HCSW ---
Telegraph Equipment Maintainer Visit Advance Directive Attempting to locate patient's daughter, Felicita. Last name unknown. Last known location in [place]. Unable to identify patient, son, or daughter on social media. Ms. Moffett originally from [place]. Moved to [place] around 1989. She had 3 siblings, all reportedly . Google search of patient produced possible match for daughter, Felicita Moffett. # [phone]. Number just rings then rings busy/disconnected. Spoke with SOPHIA Silva to request Anna Lozabai report. [employer] results produced no phone numbers for Felicita Moffett. Possible relative to Felicita found, Leticia Moffett #[phone]. Leticia states she does not know Felicita Moffett. She does not know the patient. States she has a relative Efren Moffett but he lives in [place]. Leticia states she believes she has no relation to the patient. . Karla Arias, DIRECTOR OF OPERATIONS HOME HEALTH Jun 12, 2017 11:51
[2017-06-12 11:56] VITALS: BP 118/61; PULSE 88; RESP 18; TEMP 97.5; O2SAT 90
[2017-06-12 16:03] VITALS: BP 134/51; PULSE 86; RESP 18; TEMP 98.3; O2SAT 94
[2017-06-12 17:57] LABS: AUTOMATED NEUTROPHIL # 8.6 TH/MM3 (1.8-7.7); BASOPHIL % 0.1 % (0.0-2.0); EOSINOPHIL % 0.1 % (0.0-4.0); HEMATOCRIT 32.8 % (35.0-46.0); HEMOGLOBIN 11.4 GM/DL (11.6-15.3); LYMPHOCYTE # 0.8 TH/MM3 (1.0-4.8); MEAN CELL VOLUME 83.8 FL (80.0-100.0); MEAN CORPUSCULAR HEMOGLOBIN 29.2 PG (27.0-34.0); MEAN CORPUSCULAR HGB CONC 34.8 % (32.0-36.0); MEAN PLATELET VOLUME 9.8 FL (7.0-11.0); MONO % 5.8 % (0.0-8.0); MONOCYTE # 0.6 TH/MM3 (0-0.9); PLATELET COUNT 129 TH/MM3 (150-450); RED BLOOD COUNT 3.91 MIL/MM3 (4.00-5.30); RED CELL DISTRIBUTION WIDTH 14.2 % (11.6-17.2)
[2017-06-12] MEDS ORDERED: VANCOMYCIN 1,000 MG/NS 250 ML IV SCH ×6 (18:00→21:00)
--- NOTE | 2017-06-12 18:19 | HHI.PR ---
Subjective Remarks Patient is uncooperative, uanble to provide answers afebrile, stable vital signs Objective Vitals Vital Signs Date Time Temp Pulse Resp B/P (MAP) Pulse Ox O2 Delivery O2 Flow Rate FiO2 06/12/17 16:03 98.3 86 18 134/51 (78) 94 06/12/17 11:56 97.5 88 18 118/61 (80) 90 06/12/17 09:00 97.5 74 16 101/56 (71) 92 06/12/17 08:00 Nasal Cannula 2.00 06/12/17 05:20 98.7 80 20 118/67 (84) 91 06/12/17 00:10 97.8 79 20 129/76 (93) 92 06/11/17 21:37 97.2 78 18 123/66 (85) 94 06/11/17 21:17 06/11/17 20:23 84 16 112/58 (76) 98 Room Air 06/11/17 18:56 88 18 122/80 (94) 98 Room Air I/O 06/11/17 06/11/17 06/11/17 06/12/17 06/12/17 06/12/17 07:00 15:00 23:00 07:00 15:00 23:00 Intake Total 3162.5 ml 0 ml 120 ml Output Total 400 ml 200 ml Balance 3162.5 ml -400 ml -80 ml Intake Oral 0 ml 120 ml IV Total 3162.5 ml Output Urine Total 400 ml 200 ml # Bowel Movements 0 Result Diagram: 06/12/17 1706 06/11/17 1630 Imaging Last Impressions Head CT 06/11/17 1715 Signed Impressions: Service Date/Time: May 18:25 - CONCLUSION: No acute findings. Atrophy. David Camacho MD Chest X-Ray 06/11/17 1632 Signed Impressions: Service Date/Time: May 16:50 - CONCLUSION: 1. Patchy opacity within the left lung consistent with probable pneumonia. Correlation is recommended. 2. Degenerative changes and scoliosis of the thoracic spine. Efren Gutierrez MD Abdomen/Pelvis CT 06/11/17 1632 Signed Impressions: Service Date/Time: May 18:37 - CONCLUSION: 1. Dense consolidation in the left lung base most characteristic of pneumonia or aspiration. 2. Large hiatal hernia. 3. Nonobstructing renal calcifications. 4. Severe sigmoid diverticulosis. 5. Right-sided bladder diverticulum. David Camacho MD Lower Extremity CT 06/11/17 0000 Signed Impressions: Service Date/Time: May 22:06 - CONCLUSION: 1. Moderate to severe osteoarthritis. Trace joint fluid. David Camacho MD Objective Remarks Patient is awake and aler, nad patient not answering questions S1S2 RRR, no MRG Decreased air entry BL patient moves all extremities, not following commands or providing much of a history Medications and IVs Current Medications Medications (Trade) Dose Ordered Sig/Anthony Route Start Time Stop Time Status Last Admin (NS Flush) 2 ml UNSCH PRN IV FLUSH 06/11/17 20:15 (NS Flush) 2 ml BID IV FLUSH 06/11/17 21:00 06/13/17 08:33 (Narcan Inj) 0.4 mg UNSCH PRN IV PUSH 06/11/17 20:15 (Heparin Inj) 5,000 units Q12HR SQ 06/12/17 09:00 06/13/17 08:32 (Protonix) 40 mg DAILY PO 06/12/17 09:00 06/13/17 08:32 Piperacillin Sod/ Tazobactam Sod 100 ml @ 200 mls/hr Q6H IV 06/12/17 21:00 06/13/17 16:09 (Aspirin Chew) 81 mg DAILY CHEW 06/14/17 09:00 (Lopressor) 12.5 mg Q12HR PO 06/13/17 21:00 (Lipitor) 80 mg HS PO 06/13/17 21:00 A/P Problem List: (1) Metabolic encephalopathy ICD Code: G93.41 - Metabolic encephalopathy Plan: Patient presents with altered mental status. Likely secondary to metabolic encephalopathy secondary to sepsis due to UTI. Continue to monitor neurological status and neuro checks every [address] negative. (2) Sepsis ICD Code: A41.9 - Sepsis, unspecified organism Status: Acute Plan: The patient with leukocytosis and fever. Patient with leukocytosis and fever. Sepsis secondary to UTI. Patient started on IV vancomycin IV Zosyn. Urine cultures growing gram- negative rods. Discontinue IV vancomycin. Continue IV Zosyn. Tailor antibiotics depending on urine cultures. (3) UTI (urinary tract infection) ICD Code: N39.0 - Urinary tract infection, site not specified Status: Acute Plan: Continue IV Zosyn for now. (4) PNA (pneumonia) ICD Code: J18.9 - Pneumonia, unspecified organism Status: Acute Plan: Chest x-ray showed a patchy opacity within the left lung consistent with probable pneumonia. On IV Zosyn. (5) Rhabdomyolysis ICD Code: M62.82 - Rhabdomyolysis Status: Acute Plan: CPK elevated on admission at 1584, trended up to 1789 today. Continue to monitor CPK, continue IV fluids. (6) NSTEMI (non-ST elevated myocardial infarction) ICD Code: I21.4 - Non-ST elevation (NSTEMI) myocardial infarction Plan: Patient with elevated troponin at 1.40. Troponin trended down to 0.89. Possibly secondary to demand ischemia. 2D echocardiogram shows a left ventricular systolic function which is moderate to severely reduced with an estimated ejection fraction in the range of 35-40%. Moderate concentric left ventricular hypertrophy. Doppler parameters consistent with grade 1 diastolic dysfunction. Mild to moderate mitral valve regurgitation. Mild mitral valve stenosis. Severe aortic valve stenosis Moderate aortic valve regurgitation Consult cardiology. Assessment and Plan DVT prophylaxis: Heparin subcutaneously. Discharge Planning Continue to monitor the medical floor. Cardiology consulted. Problem Qualifiers (1) Sepsis: Qualified Codes: A41.9 - Sepsis, unspecified organism (2) UTI (urinary tract infection): Qualified Codes: N30.00 - Acute cystitis without hematuria (3) PNA (pneumonia): Qualified Codes: J18.9 - Pneumonia, unspecified organism (4) Rhabdomyolysis: Qualified Codes: M62.82 - Rhabdomyolysis Qasim Araiza MD Jun 12, 2017 18:19
[2017-06-12 18:22] LABS: BICARBONATE 21.2 MEQ/L (21.0-32.0); CALCIUM 7.9 MG/DL (8.5-10.1); CREATININE 0.95 MG/DL (0.50-1.00)
[2017-06-12 19:20] LABS: TROPONIN I 0.89 NG/ML (0.02-0.05)
--- NOTE | 2017-06-12 19:20 | EKG ---
Date Performed: 06/11/2017 Time Performed: 18:13:04 PTAGE: 81 years EKG: SINUS TACHYCARDIA LEFT VENTRICULAR HYPERTROPHY AND ST-T CHANGE ABNORMAL ECG NO PREVIOUS TRACING DOCTOR: Josh Cheney Interpretating Date/Time 06/12/2017 19:16:17
--- NOTE | 2017-06-12 19:47 | ECHRPT ---
Indication: Valve Disease CONCLUSIONS The left ventricular systolic function is oxintial-ym-zmxleqh reduced with an estimated ejection fra ction in the range of 35-40%. Moderate concentric left ventricular hypertrophy. Doppler parameters are consistent with impaired left ventricular relaxtion (grade 1 diastolic dysfun ction). Lsgy-wo-iuwkvbzl mitral valve regurgitation. Mild mitral valve stenosis (Mean grad 3 at a heart rate of 80, MVA 2.5) Severe aortic valve stenosis (peak grad 105, mean grad 64, RUBEN 0.4). Moderate aortic valve regurgitation. There is moderate tricuspid regurgitation. BP: 111 / 69 HR: 79 Rhythm: Sinus MEASUREMENTS (Male / Female) Normal Values Technical Quality:Fair 2D ECHO LV Diastolic Diameter PLAX 3.1 cm 4.2 - 5.9 / 3.9 - 5.3 cm LV Systolic Diameter PLAX 2.7 cm IVS Diastolic Thickness 1.1 cm 0.6 - 1.0 / 0.6 - 0.9 cm LVPW Diastolic Thickness 1.1 cm 0.6 - 1.0 / 0.6 - 0.9 cm LV Relative Wall Thickness 0.7 RV Internal Dim ED PLAX 3.5 cm LVOT Diameter 1.8 cm LA Systolic Diameter LX 3.2 cm 3.0 - 4.0 / 2.7 - 3.8 cm LV Ejection Fraction MOD BP 33.0 % >= 55 % LV Cardiac Index MOD BP 1491.8 cm/minm LV Ejection Fraction MOD 4C 40.4 % LV Cardiac Index MOD 4C 1864.7 cm/minm LV Ejection Fraction 4C AL 39.4 % LV Cardiac Index 4C AL 1880.5 cm/minm LV Ejection Fraction MOD 2C 22.2 % LV Cardiac Index MOD 2C 932.3 cm/minm LV Ejection Fraction 2C AL 20.0 % LV Cardiac Index 2C AL 872.5 cm/minm LA Volume Index 41.8 cm/m 16 - 28 cm/m M-MODE AV Cusp Separation MM 1.0 cm DOPPLER AV Peak Velocity 512.0 cm/s AV Peak Gradient 104.9 mmHg AV Mean Gradient 64.0 mmHg AV Velocity Time Integral 115.0 cm AI Peak Velocity 400.5 cm/s AI Peak Gradient 64.2 mmHg AI Pressure Half Time 446.0 ms LVOT Peak Velocity 76.9 cm/s LVOT Peak Gradient 2.4 mmHg LVOT Velocity Time Integral 15.9 cm LVOT Cardiac Index 1886.2 cm/minm AV Area Cont Eq vti 0.4 cm AV Area Cont Eq pk 0.4 cm MV Peak Velocity 134.0 cm/s MV Peak Gradient 7.2 mmHg MV Mean Velocity 80.1 cm/s MV Mean Gradient 3.0 mmHg MV Area PHT 3.5 cm Mitral E Point Velocity 69.1 cm/s Mitral A Point Velocity 127.0 cm/s Mitral E to A Ratio 0.5 LV E' Lateral Velocity 5.1 cm/s Mitral E to LV E' Lateral Ratio 13.6 LV E' Septal Velocity 2.8 cm/s Mitral E to LV E' Septal Ratio 24.4 TR Peak Velocity 309.0 cm/s TR Peak Gradient 38.2 mmHg Right Atrial Pressure 10.0 mmHg Pulmonary Artery Systolic Pressu 48.2 mmHg Right Ventricular Systolic Press 48.2 mmHg FINDINGS LEFT VENTRICLE The left ventricular systolic function is zaeihyhq-qf-cuwlvbt reduced with an estimated ejection fra ction in the range of 35-40%. Moderate concentric left ventricular hypertrophy. Normal left ventricular size. Doppler parameters are consistent with impaired left ventricular relaxtion (grade 1 diastolic dysfun ction). RIGHT VENTRICLE Normal right ventricular size and systolic function. LEFT ATRIUM The left atrial size is mildly dilated. RIGHT ATRIUM The right atrial size is normal. ATRIAL SEPTUM Normal atrial septal thickness AORTA The aortic root and proximal ascending aorta are normal in size on limited imaging. MITRAL VALVE Calcification of both mitral valve leaflets. Mitral annular calcification is present. Sdtk-zi-qkjsdtkn mitral valve regurgitation. Mild mitral valve stenosis (Mean grad 3 at a heart rate of 80, MVA 2.5) AORTIC VALVE Diffuse calcification of the aortic valve. Severe thickening of the aortic valve leaflets. Severe aortic valve stenosis (peak grad 105, mean grad 64, RUBEN 0.4). Moderate aortic valve regurgitation. TRICUSPID VALVE Structurally normal tricuspid valve. . There is moderate tricuspid regurgitation. The estimated pulmonary arterial pressure is 48.2 mmHg. PULMONARY VALVE Trivial pulmonary valve regurgitation. VESSELS The inferior vena cava is normal in size. PERICARDIUM No pericardial effusion. Eddie Martinez DO (Electronically Signed) Final Date:12 June 2017 19:47
[2017-06-12 20:00] VITALS: BP 147/85; PULSE 92; RESP 18; TEMP 98.6; O2SAT 94
[2017-06-13] VITALS (7 sets, daily range): BP systolic 133–165; BP diastolic 67–79; PULSE 63–91; RESP 17–18; TEMP 97.2–98.2; O2SAT 94–99
[2017-06-13] MEDS: PIPERACIL-TAZO 4.5 GM PREMIX 100 ML IV SCH ×4 (02:30→22:46)
[2017-06-13] MEDS: PANTOPRAZOLE SOD 40 MG DELAYED RELEASE TAB PO SCH (08:32)
[2017-06-13] MEDS: HEPARIN SODIUM - SQ 10,000 UNITS/ML VIAL SQ SCH ×2 (08:32→22:47)
[2017-06-13] MEDS: SODIUM CHLORIDE 0.9% FLUSH 10 ML FLUSH IV FLUSH SCH ×2 (08:33→22:46)
[2017-06-13 11:07] LABS: BASOPHIL % 0.2 % (0.0-2.0); EOSINOPHIL % 0.1 % (0.0-4.0); HEMATOCRIT 33.8 % (35.0-46.0); HEMOGLOBIN 11.6 GM/DL (11.6-15.3); LYMPH % 8.1 % (9.0-44.0); LYMPHOCYTE # 0.7 TH/MM3 (1.0-4.8); MEAN CELL VOLUME 85.4 FL (80.0-100.0); MEAN CORPUSCULAR HEMOGLOBIN 29.2 PG (27.0-34.0); MEAN CORPUSCULAR HGB CONC 34.2 % (32.0-36.0); MEAN PLATELET VOLUME 9.8 FL (7.0-11.0); MONO % 7.4 % (0.0-8.0); MONOCYTE # 0.6 TH/MM3 (0-0.9); NEUT % 84.2 % (16.0-70.0); PLATELET COUNT 148 TH/MM3 (150-450); RED BLOOD COUNT 3.96 MIL/MM3 (4.00-5.30); RED CELL DISTRIBUTION WIDTH 14.1 % (11.6-17.2); WHITE BLOOD COUNT 8.3 TH/MM3 (4.0-11.0)
[2017-06-13 11:20] LABS: ALBUMIN 2.3 GM/DL (3.4-5.0); ALT (GPT) 41 U/L (10-53); AST (GOT) 86 U/L (15-37); BICARBONATE 20.9 MEQ/L (21.0-32.0); BLOOD UREA NITROGEN 26 MG/DL (7-18); CHLORIDE 108 MEQ/L (98-107); CREATININE 0.93 MG/DL (0.50-1.00); GLOMERULAR FILTRATION RATE 58 ML/MIN (>89); GLUCOSE,RANDOM 99 MG/DL (74-106); MAGNESIUM 2.2 MG/DL (1.5-2.5); PHOSPHORUS 3.2 MG/DL (2.5-4.9); SODIUM (NA) 141 MEQ/L (136-145)
[2017-06-13 11:28] LABS: ALKALINE PHOSPHATASE 60 U/L (45-117); TOTAL BILIRUBIN ADULT 0.4 MG/DL (0.2-1.0); TOTAL PROTEIN 6.9 GM/DL (6.4-8.2)
[2017-06-13 11:47] LABS: TROPONIN I 0.65 NG/ML (0.02-0.05)
--- NOTE | 2017-06-13 16:53 | MB ---
cc: JuanRobertlexi Ramirez DO DATE: 06/13/2017 REASON FOR CONSULTATION: Elevated troponin, aortic stenosis. HISTORY OF PRESENT ILLNESS: Aditi Moffett is an 81-year-old female who presented to the [facility] on 06/11/2017 because she had not been eating well. I am unable to get a history from the patient as she is not cooperative and unable to give me any answers. She is currently oriented times zero as she is unsure where she is, she thinks it is the and has no answer who the president is. Apparently Dr. Paul talked to the patient's son and it is difficult to determine how reliable some of the information is, but apparently she was brought in because she was not eating well and she had stopped eating a long time ago. She has also fell down a lot over the past week. There is no mention of chest pain or shortness of breath. Apparently, the son called 911 because she fell and he was unable to stand her up. During her workup, it appears that she has had an elevated troponin, and an echocardiogram, which showed severe aortic stenosis. PAST MEDICAL HISTORY: Per the son, no past medical history. PAST SURGICAL HISTORY: Per the son, only colonoscopy. ALLERGIES: NO KNOWN DRUG ALLERGIES. MEDICATIONS: Denies. FAMILY HISTORY: Nothing that the son is aware of. SOCIAL HISTORY: The patient is not a smoker, drinker or drug abuser. REVIEW OF SYSTEMS: Fourteen systems were reviewed including osteopathic, pertinent positives and negatives above, otherwise negative. PHYSICAL EXAMINATION: VITAL SIGNS: Temperature 98.2, heart rate 86, blood pressure 150/72, respirations 17, pulse oximetry 97% on room air. GENERAL: The patient is an elderly lady in no acute distress. She appears overall disheveled. She is alert and awake, but not oriented at all. She is currently in restraints. HEENT: Pupils are equal, round and reactive. Mucous membranes moist. NECK: Supple. No JVD at 45 degrees. No carotid bruits heard bilaterally. Carotid upstroke is brisk in nature. HEART: Regular rate and rhythm. Positive first and second heart sounds with a III/ crescendo decrescendo murmur to the right sternal border. LUNGS: Decreased breath sounds bilaterally with scattered rhonchi. ABDOMEN: Soft, nontender, and nondistended. No organomegaly noted. EXTREMITIES: Show no clubbing, cyanosis or edema. Femoral pulses are intact. NEUROLOGIC: The patient is not oriented but appears to be moving all 4 extremities without problems. SKIN: Warm, dry and intact. OSTEOPATHIC: No kyphoscoliosis or lordosis. LABORATORY DATA: Hemoglobin 11.6, hematocrit 33.8, platelets 148. Potassium 3.6, BUN 26, creatinine 0.93. Troponin 1.4, decreasing to 0.65. Electrocardiogram (06/11/2017 at 18:13) sinus rhythm, LVH with secondary ST-T wave changes. ASSESSMENT: 1. Metabolic encephalopathy. 2. Multiple falls throughout the week. 3. Decreased appetite. 4. Pneumonia. 5. Urinary tract infection. 6. Non-ST elevation myocardial infarction, possible type 1 versus type 2. 7. Severe aortic stenosis by echocardiogram (peak gradient 105, mean gradient 64, aortic valve area 0.4). 8. Ejection fraction 35-40% by echocardiogram. RECOMMENDATIONS: 1. Ms. Moffett appears to have presented due to decreased appetite and was found to have pneumonia, UTI and encephalopathy. 2. She was found to have an elevated troponin and as this has dropped off, this may be due to a type 2 of effect with her aortic stenosis, possible coronary artery disease with her overall illness leading to demand ischemia. 3. Overall, this is a difficult situation, but with the patient's current sickness, and significant dementia, I would continue medical therapy as I think the benefit of working her up for possible eventual aortic valve replacement would be limited. 4. We will plan on placing her on aspirin 81 mg daily, statin therapy and beta jamaal therapy. If everything is stable after this, I would consider placing her on MASON inhibitor therapy. Thank you for allowing me to see Aditi Moffett. If there any questions, please do not hesitate to call. Eddie Martinez, DO VGP/KD , 01:29 PM , 04:52 PM
--- NOTE | 2017-06-13 17:47 | HHI.PR ---
Subjective Remarks Patient is on restraints - as per RN trying to pull pa catheter and IV lines. Patient is still confused Afebrile Objective Vitals Vital Signs Date Time Temp Pulse Resp B/P (MAP) Pulse Ox O2 Delivery O2 Flow Rate FiO2 06/13/17 15:00 97.9 91 17 165/75 (105) 94 06/13/17 12:00 97.7 82 17 142/67 (92) 94 06/13/17 09:00 93 Room Air 06/13/17 08:00 98.2 86 17 150/72 (98) 97 06/13/17 04:00 97.2 83 18 144/76 (98) 99 06/13/17 00:00 Nasal Cannula 2.00 06/13/17 00:00 98.0 78 17 133/79 (97) 96 06/12/17 20:00 98.6 92 18 147/85 (105) 94 06/12/17 19:00 Nasal Cannula 2.00 I/O 06/12/17 06/12/17 06/12/17 06/13/17 06/13/17 06/13/17 07:00 15:00 23:00 07:00 15:00 23:00 Intake Total 200 ml 120 ml 450 ml 360 ml Output Total 400 ml 200 ml 250 ml 200 ml Balance -200 ml -80 ml 200 ml 160 ml Intake Oral 0 ml 120 ml 0 ml 360 ml IV Total 200 ml 450 ml Output Urine Total 400 ml 200 ml 250 ml 200 ml # Bowel Movements 0 0 0 Result Diagram: 06/13/17 0936 06/13/17 0906 Imaging Last Impressions Head CT 06/11/17 1715 Signed Impressions: Service Date/Time: May 18:25 - CONCLUSION: No acute findings. Atrophy. David Camacho MD Chest X-Ray 06/11/17 1632 Signed Impressions: Service Date/Time: May 16:50 - CONCLUSION: 1. Patchy opacity within the left lung consistent with probable pneumonia. Correlation is recommended. 2. Degenerative changes and scoliosis of the thoracic spine. Efren Gutierrez MD Abdomen/Pelvis CT 06/11/17 1632 Signed Impressions: Service Date/Time: May 18:37 - CONCLUSION: 1. Dense consolidation in the left lung base most characteristic of pneumonia or aspiration. 2. Large hiatal hernia. 3. Nonobstructing renal calcifications. 4. Severe sigmoid diverticulosis. 5. Right-sided bladder diverticulum. David Camacho MD Lower Extremity CT 06/11/17 0000 Signed Impressions: Service Date/Time: May 22:06 - CONCLUSION: 1. Moderate to severe osteoarthritis. Trace joint fluid. David Camacho MD Objective Remarks Patient is awake and aler, nad patient not answering questions S1S2 RRR, no MRG Decreased air entry BL patient moves all extremities, not following commands or providing much of a history Medications and IVs Current Medications Medications (Trade) Dose Ordered Sig/Anthony Route Start Time Stop Time Status Last Admin (NS Flush) 2 ml UNSCH PRN IV FLUSH 06/11/17 20:15 (NS Flush) 2 ml BID IV FLUSH 06/11/17 21:00 06/13/17 08:33 (Narcan Inj) 0.4 mg UNSCH PRN IV PUSH 06/11/17 20:15 (Heparin Inj) 5,000 units Q12HR SQ 06/12/17 09:00 06/13/17 08:32 (Protonix) 40 mg DAILY PO 06/12/17 09:00 06/13/17 08:32 Piperacillin Sod/ Tazobactam Sod 100 ml @ 200 mls/hr Q6H IV 06/12/17 21:00 06/13/17 16:09 (Aspirin Chew) 81 mg DAILY CHEW 06/14/17 09:00 (Lopressor) 12.5 mg Q12HR PO 06/13/17 21:00 (Lipitor) 80 mg HS PO 06/13/17 21:00 Urinary Catheter: Yes Assessment to: Remove Vascular Central Line Catheter: No A/P Problem List: (1) Metabolic encephalopathy ICD Code: G93.41 - Metabolic encephalopathy Plan: Patient presents with altered mental status. Likely secondary to metabolic encephalopathy secondary to sepsis due to UTI. Continue to monitor neurological status and neuro checks every [address] negative. 06/13 Mental status improving, continue neuro checks. (2) Sepsis ICD Code: A41.9 - Sepsis, unspecified organism Status: Acute Plan: The patient with leukocytosis and fever. Patient with leukocytosis and fever. Sepsis secondary to E coli Patient started on IV vancomycin IV Zosyn. Urine cultures growing gram- negative rods. Discontinue IV vancomycin. Continue IV Zosyn. (3) UTI (urinary tract infection) ICD Code: N39.0 - Urinary tract infection, site not specified Status: Acute Plan: Continue IV Zosyn for now. (4) PNA (pneumonia) ICD Code: J18.9 - Pneumonia, unspecified organism Status: Acute Plan: Chest x-ray showed a patchy opacity within the left lung consistent with probable pneumonia. On IV Zosyn. (5) Rhabdomyolysis ICD Code: M62.82 - Rhabdomyolysis Status: Acute Plan: CPK elevated on admission at 1584, trended up to 1789 today, now 986 Continue to monitor CPK, continue IV fluids. (6) NSTEMI (non-ST elevated myocardial infarction) ICD Code: I21.4 - Non-ST elevation (NSTEMI) myocardial infarction Plan: Patient with elevated troponin at 1.40. Troponin trended down to 0.89. Possibly secondary to demand ischemia. 2D echocardiogram shows a left ventricular systolic function which is moderate to severely reduced with an estimated ejection fraction in the range of 35-40%. Moderate concentric left ventricular hypertrophy. Doppler parameters consistent with grade 1 diastolic dysfunction. Mild to moderate mitral valve regurgitation. Mild mitral valve stenosis. Severe aortic valve stenosis Moderate aortic valve regurgitation 06/13 she had cardiology consultation. Case discussed with Dr. Martinez. Recommends medical management. Start aspirin, beta-jamaal, statin. Check lipid profile. (7) Severe aortic stenosis ICD Code: I35.0 - Nonrheumatic aortic (valve) stenosis Status: Acute Plan: As seen on 2D echo described above. Cardiology consulted. Recommended medical management. (8) NIMCO (acute kidney injury) ICD Code: N17.9 - Acute kidney failure, unspecified Plan: Creatinine on admission 1.07, creatinine trending down to 0.93. Likely prerenal azotemia secondary to dehydration. Improving with IV fluids. Continue to monitor BUN/creatinine, history I's and O's, avoid nephrotoxins. Assessment and Plan DVT prophylaxis: Heparin subcutaneously. Discharge Planning Continue to monitor the medical floor. Discharge pending clinical improvement. Problem Qualifiers (1) Sepsis: Qualified Codes: A41.9 - Sepsis, unspecified organism (2) UTI (urinary tract infection): Qualified Codes: N30.00 - Acute cystitis without hematuria (3) PNA (pneumonia): Qualified Codes: J18.9 - Pneumonia, unspecified organism (4) Rhabdomyolysis: Qualified Codes: M62.82 - Rhabdomyolysis Qasim Araiza MD Jun 13, 2017 17:47
[2017-06-13] MEDS: METOPROLOL TARTRATE 25 MG TAB PO SCH (22:47)
[2017-06-13] MEDS: ATORVASTATIN 80 MG TAB PO SCH (22:47)
[2017-06-14] VITALS (12 sets, daily range): BP systolic 116–155; BP diastolic 65–95; PULSE 56–90; RESP 20; TEMP 97.4–98.1; O2SAT 92–96
[2017-06-14] MEDS: PIPERACIL-TAZO 4.5 GM PREMIX 100 ML IV SCH ×2 (03:00→08:27)
[2017-06-14 07:23] LABS: AUTOMATED NEUTROPHIL # 5.5 TH/MM3 (1.8-7.7); BASOPHIL % 0.2 % (0.0-2.0); EOSINOPHIL % 0.2 % (0.0-4.0); HEMATOCRIT 33.8 % (35.0-46.0); HEMOGLOBIN 11.5 GM/DL (11.6-15.3); LYMPH % 10.8 % (9.0-44.0); LYMPHOCYTE # 0.7 TH/MM3 (1.0-4.8); MEAN CELL VOLUME 84.8 FL (80.0-100.0); MEAN CORPUSCULAR HEMOGLOBIN 28.9 PG (27.0-34.0); MEAN CORPUSCULAR HGB CONC 34.1 % (32.0-36.0); MEAN PLATELET VOLUME 9.4 FL (7.0-11.0); MONO % 7.1 % (0.0-8.0); MONOCYTE # 0.5 TH/MM3 (0-0.9); NEUT % 81.7 % (16.0-70.0); PLATELET COUNT 177 TH/MM3 (150-450); RED BLOOD COUNT 3.99 MIL/MM3 (4.00-5.30); WHITE BLOOD COUNT 6.7 TH/MM3 (4.0-11.0)
[2017-06-14 07:44] LABS: ALBUMIN 2.2 GM/DL (3.4-5.0); ALT (GPT) 36 U/L (10-53); AST (GOT) 59 U/L (15-37); BICARBONATE 21.7 MEQ/L (21.0-32.0); BLOOD UREA NITROGEN 21 MG/DL (7-18); CALCIUM 7.8 MG/DL (8.5-10.1); CHLORIDE 108 MEQ/L (98-107); CREATININE 0.82 MG/DL (0.50-1.00); GLOMERULAR FILTRATION RATE 67 ML/MIN (>89); GLUCOSE,RANDOM 84 MG/DL (74-106); MAGNESIUM 2.2 MG/DL (1.5-2.5); PHOSPHORUS 2.8 MG/DL (2.5-4.9); SODIUM (NA) 140 MEQ/L (136-145)
[2017-06-14 07:47] LABS: ALKALINE PHOSPHATASE 65 U/L (45-117); TOTAL BILIRUBIN ADULT 0.5 MG/DL (0.2-1.0); TOTAL PROTEIN 6.5 GM/DL (6.4-8.2)
[2017-06-14] MEDS: METOPROLOL TARTRATE 25 MG TAB PO SCH ×2 (08:28→21:43)
[2017-06-14] MEDS: ASPIRIN 81 MG CHEW TAB CHEW SCH (08:28)
[2017-06-14] MEDS: PANTOPRAZOLE SOD 40 MG DELAYED RELEASE TAB PO SCH (08:28)
[2017-06-14] MEDS: SODIUM CHLORIDE 0.9% FLUSH 10 ML FLUSH IV FLUSH SCH ×2 (08:29→21:43)
[2017-06-14] MEDS: HEPARIN SODIUM - SQ 10,000 UNITS/ML VIAL SQ SCH ×2 (08:29→21:44)
[2017-06-14] MEDS: CEFUROXIME AXETIL 500 MG TAB PO SCH ×2 (12:19→21:43)
[2017-06-14] MEDS: metroNIDAZOLE 500 MG INJ 100 ML IV SCH ×2 (12:20→21:43)
--- NOTE | 2017-06-14 12:53 | HHI.PR ---
Subjective Remarks Still in restraints this am Patient is more alert Denies cp/sob Afebrile Objective Vitals Vital Signs Date Time Temp Pulse Resp B/P (MAP) Pulse Ox O2 Delivery O2 Flow Rate FiO2 06/14/17 12:42 97.9 88 139/79 (99) 92 06/14/17 07:05 97.8 77 136/95 (109) 94 06/14/17 04:00 97.4 84 20 136/65 (88) 93 06/14/17 04:00 Room Air 06/14/17 03:42 56 06/14/17 00:00 Room Air 06/14/17 00:00 98.1 75 20 155/72 (99) 94 06/13/17 23:59 63 06/13/17 19:48 73 06/13/17 15:00 97.9 91 17 165/75 (105) 94 I/O 06/13/17 06/13/17 06/13/17 06/14/17 06/14/17 06/14/17 07:00 15:00 23:00 07:00 15:00 23:00 Intake Total 450 ml 360 ml 120 ml Output Total 250 ml 200 ml 380 ml Balance 200 ml 160 ml -260 ml Intake Oral 0 ml 360 ml 120 ml IV Total 450 ml Output Urine Total 250 ml 200 ml 380 ml # Bowel Movements 0 0 0 Result Diagram: 06/14/17 0633 06/14/17 0633 Imaging Last Impressions Head CT 06/11/17 1715 Signed Impressions: Service Date/Time: May 18:25 - CONCLUSION: No acute findings. Atrophy. David Camacho MD Chest X-Ray 06/11/17 1632 Signed Impressions: Service Date/Time: May 16:50 - CONCLUSION: 1. Patchy opacity within the left lung consistent with probable pneumonia. Correlation is recommended. 2. Degenerative changes and scoliosis of the thoracic spine. Efren Gutierrez MD Abdomen/Pelvis CT 06/11/17 1632 Signed Impressions: Service Date/Time: May 18:37 - CONCLUSION: 1. Dense consolidation in the left lung base most characteristic of pneumonia or aspiration. 2. Large hiatal hernia. 3. Nonobstructing renal calcifications. 4. Severe sigmoid diverticulosis. 5. Right-sided bladder diverticulum. David Camacho MD Lower Extremity CT 06/11/17 0000 Signed Impressions: Service Date/Time: May 22:06 - CONCLUSION: 1. Moderate to severe osteoarthritis. Trace joint fluid. David Camacho MD Objective Remarks Patient is awake and aler, nad patient not answering questions S1S2 RRR, no MRG Decreased air entry BL patient moves all extremities, not following commands or providing much of a history Medications and IVs Current Medications Medications (Trade) Dose Ordered Sig/Anthony Route Start Time Stop Time Status Last Admin (NS Flush) 2 ml UNSCH PRN IV FLUSH 06/11/17 20:15 (NS Flush) 2 ml BID IV FLUSH 06/11/17 21:00 06/14/17 21:43 (Narcan Inj) 0.4 mg UNSCH PRN IV PUSH 06/11/17 20:15 (Heparin Inj) 5,000 units Q12HR SQ 06/12/17 09:00 06/14/17 21:44 (Protonix) 40 mg DAILY PO 06/12/17 09:00 06/14/17 08:28 (Aspirin Chew) 81 mg DAILY CHEW 06/14/17 09:00 06/14/17 08:28 (Lopressor) 12.5 mg Q12HR PO 06/13/17 21:00 06/14/17 21:43 (Lipitor) 80 mg HS PO 06/13/17 21:00 06/14/17 21:43 (Ceftin) 500 mg Q12HR PO 06/14/17 12:00 06/14/17 21:43 Metronidazole 100 ml @ 100 mls/hr Q8H IV 06/14/17 12:00 06/14/17 21:43 (Prinivil) 2.5 mg DAILY PO 06/15/17 09:00 (Pill Splitter) 1 ea UNSCH PRN OTHER 06/14/17 13:30 A/P Problem List: (1) Metabolic encephalopathy ICD Code: G93.41 - Metabolic encephalopathy Plan: Patient presents with altered mental status. Likely secondary to metabolic encephalopathy secondary to sepsis due to UTI. Continue to monitor neurological status and neuro checks every [address] negative. 06/13 Mental status improving, continue neuro checks. 06/14 Patient is more alert. Dicussed earlier in am, will keep off restraints. (2) Sepsis ICD Code: A41.9 - Sepsis, unspecified organism Status: Acute Plan: The patient with leukocytosis and fever. Patient with leukocytosis and fever. Sepsis secondary to E coli Patient started on IV vancomycin IV Zosyn. Urine cultures growing gram- negative rods. Discontinue IV vancomycin. Continue IV Zosyn. 06/14 Dc IV Zosyn. Will start on Ceftin and Flagyl PO. (3) UTI (urinary tract infection) ICD Code: N39.0 - Urinary tract infection, site not specified Status: Acute Plan: DC Zosyn. Start Ceftin and Flagyl po. (4) PNA (pneumonia) ICD Code: J18.9 - Pneumonia, unspecified organism Status: Acute Plan: Chest x-ray showed a patchy opacity within the left lung consistent with probable pneumonia. Antibiotics as above. (5) Rhabdomyolysis ICD Code: M62.82 - Rhabdomyolysis Status: Acute Plan: CPK elevated on admission at 1584, trended up to 1789 today, now 986 Continue to monitor CPK, continue IV fluids. 06/14 DC IV Fluids. (6) NSTEMI (non-ST elevated myocardial infarction) ICD Code: I21.4 - Non-ST elevation (NSTEMI) myocardial infarction Plan: Patient with elevated troponin at 1.40. Troponin trended down to 0.89. Possibly secondary to demand ischemia. 2D echocardiogram shows a left ventricular systolic function which is moderate to severely reduced with an estimated ejection fraction in the range of 35-40%. Moderate concentric left ventricular hypertrophy. Doppler parameters consistent with grade 1 diastolic dysfunction. Mild to moderate mitral valve regurgitation. Mild mitral valve stenosis. Severe aortic valve stenosis Moderate aortic valve regurgitation 06/13 she had cardiology consultation. Case discussed with Dr. Martinez. Recommends medical management. Start aspirin, beta-jamaal, statin. Check lipid profile. (7) Severe aortic stenosis ICD Code: I35.0 - Nonrheumatic aortic (valve) stenosis Status: Acute Plan: As seen on 2D echo described above. Cardiology consulted. Recommended medical management. (8) NIMCO (acute kidney injury) ICD Code: N17.9 - Acute kidney failure, unspecified Plan: Creatinine on admission 1.07, creatinine trending down to 0.93. Likely prerenal azotemia secondary to dehydration. Improving with IV fluids. Continue to monitor BUN/creatinine, history I's and O's, avoid nephrotoxins. Assessment and Plan DVT prophylaxis: Heparin subcutaneously. Discharge Planning Possible DC in am. Patient will need PT at rehab. Problem Qualifiers (1) Sepsis: Qualified Codes: A41.9 - Sepsis, unspecified organism (2) UTI (urinary tract infection): Qualified Codes: N30.00 - Acute cystitis without hematuria (3) PNA (pneumonia): Qualified Codes: J18.9 - Pneumonia, unspecified organism (4) Rhabdomyolysis: Qualified Codes: M62.82 - Rhabdomyolysis Qasim Araiza MD Jun 14, 2017 12:53
--- NOTE | 2017-06-14 13:05 | PD.CARD.PN ---
Subjective Subjective Remarks No events overnight Not in restraints anymore Still confused Objective Medications Current Medications Medications (Trade) Dose Ordered Sig/Anthony Route Start Time Stop Time Status Last Admin (NS Flush) 2 ml UNSCH PRN IV FLUSH 06/11/17 20:15 (NS Flush) 2 ml BID IV FLUSH 06/11/17 21:00 06/14/17 08:29 (Narcan Inj) 0.4 mg UNSCH PRN IV PUSH 06/11/17 20:15 (Heparin Inj) 5,000 units Q12HR SQ 06/12/17 09:00 06/14/17 08:29 (Protonix) 40 mg DAILY PO 06/12/17 09:00 06/14/17 08:28 (Aspirin Chew) 81 mg DAILY CHEW 06/14/17 09:00 06/14/17 08:28 (Lopressor) 12.5 mg Q12HR PO 06/13/17 21:00 06/14/17 08:28 (Lipitor) 80 mg HS PO 06/13/17 21:00 06/13/17 22:47 (Ceftin) 500 mg Q12HR PO 06/14/17 12:00 06/14/17 12:19 Metronidazole 100 ml @ 100 mls/hr Q8H IV 06/14/17 12:00 06/14/17 12:20 Vital Signs / I&O Vital Signs Date Time Temp Pulse Resp B/P (MAP) Pulse Ox O2 Delivery O2 Flow Rate FiO2 06/14/17 12:42 97.9 88 139/79 (99) 92 06/14/17 07:05 97.8 77 136/95 (109) 94 06/14/17 04:00 97.4 84 20 136/65 (88) 93 06/14/17 04:00 Room Air 06/14/17 03:42 56 06/14/17 00:00 Room Air 06/14/17 00:00 98.1 75 20 155/72 (99) 94 06/13/17 23:59 63 06/13/17 19:48 73 06/13/17 15:00 97.9 91 17 165/75 (105) 94 I/O 06/13/17 06/13/17 06/13/17 06/14/17 06/14/17 06/14/17 07:00 15:00 23:00 07:00 15:00 23:00 Intake Total 450 ml 360 ml 120 ml Output Total 250 ml 200 ml 380 ml Balance 200 ml 160 ml -260 ml Intake Oral 0 ml 360 ml 120 ml IV Total 450 ml Output Urine Total 250 ml 200 ml 380 ml # Bowel Movements 0 0 0 Physical Exam GENERAL: NAD, AAOx0 SKIN: Warm and dry. HEAD: Atraumatic. Normocephalic. EYES: Pupils equal and round. No scleral icterus. No injection or drainage. ENT: No nasal bleeding or discharge. Mucous membranes pink and moist. NECK: Trachea midline. No JVD. CARDIOVASCULAR: Regular rate and rhythm. 05/26 crescendo-decrescendo murmur to the RSB RESPIRATORY: No accessory muscle use. Clear to auscultation. Breath sounds equal bilaterally. GASTROINTESTINAL: Abdomen soft, non-tender, nondistended. Hepatic and splenic margins not palpable. MUSCULOSKELETAL: Extremities without clubbing, cyanosis, or edema. No obvious deformities. NEUROLOGICAL: Awake and alert. No obvious cranial nerve deficits. Motor grossly within normal limits. Five out of 5 muscle strength in the arms and legs. Normal speech. PSYCHIATRIC: Appropriate mood and affect; insight and judgment normal. Laboratory Laboratory Tests Test 06/14/17 06:33 White Blood Count 6.7 TH/MM3 Red Blood Count 3.99 MIL/MM3 Hemoglobin 11.5 GM/DL Hematocrit 33.8 % Mean Corpuscular Volume 84.8 FL Mean Corpuscular Hemoglobin 28.9 PG Mean Corpuscular Hemoglobin Concent 34.1 % Red Cell Distribution Width 14.0 % Platelet Count 177 TH/MM3 Mean Platelet Volume 9.4 FL Neutrophils (%) (Auto) 81.7 % Lymphocytes (%) (Auto) 10.8 % Monocytes (%) (Auto) 7.1 % Eosinophils (%) (Auto) 0.2 % Basophils (%) (Auto) 0.2 % Neutrophils # (Auto) 5.5 TH/MM3 Lymphocytes # (Auto) 0.7 TH/MM3 Monocytes # (Auto) 0.5 TH/MM3 Eosinophils # (Auto) 0.0 TH/MM3 Basophils # (Auto) 0.0 TH/MM3 CBC Comment DIFF FINAL Differential Comment Blood Urea Nitrogen 21 MG/DL Creatinine 0.82 MG/DL Random Glucose 84 MG/DL Total Protein 6.5 GM/DL Albumin 2.2 GM/DL Calcium Level 7.8 MG/DL Phosphorus Level 2.8 MG/DL Magnesium Level 2.2 MG/DL Alkaline Phosphatase 65 U/L Aspartate Amino Transf (AST/SGOT) 59 U/L Alanine Aminotransferase (ALT/SGPT) 36 U/L Total Bilirubin 0.5 MG/DL Sodium Level 140 MEQ/L Potassium Level 3.7 MEQ/L Chloride Level 108 MEQ/L Carbon Dioxide Level 21.7 MEQ/L Anion Gap 10 MEQ/L Estimat Glomerular Filtration Rate 67 ML/MIN Assessment and Plan Problem List: (1) PNA (pneumonia) ICD Codes: J18.9 - Pneumonia, unspecified organism Status: Acute (2) UTI (urinary tract infection) ICD Codes: N39.0 - Urinary tract infection, site not specified Status: Acute (3) Sepsis ICD Codes: A41.9 - Sepsis, unspecified organism Status: Acute (4) NSTEMI (non-ST elevated myocardial infarction) ICD Codes: I21.4 - Non-ST elevation (NSTEMI) myocardial infarction (5) Severe aortic stenosis ICD Codes: I35.0 - Nonrheumatic aortic (valve) stenosis Status: Acute (6) Metabolic encephalopathy ICD Codes: G93.41 - Metabolic encephalopathy (7) Agitation ICD Codes: R45.1 - Restlessness and agitation (8) Confusion ICD Codes: R41.0 - Disorientation, unspecified Assessment and Plan 1) Decreased appetite secondary to PNA/UTI 2) PNA/UTI per primary 3) NSTEMI Most likely demand ischemia secondary to sepsis with severe 4) Severe Per patient, she feels she's asymptomatic 5) Overall confusion, most likely underlying dementia 6) Discussed undergoing cardiac catheterization She does not want any procedures Attempted to call her son as concern with her decision making, but no answer 7) Ultimately I feel she is best suited for medical management due to age, comorbidities, and dementia I feel that possible evaluation for aortic valve replacement would be limited 8) Con't ASA, statin, BB Add MASON-I Problem Qualifiers (1) PNA (pneumonia): Qualified Codes: J18.9 - Pneumonia, unspecified organism (2) UTI (urinary tract infection): Qualified Codes: N30.00 - Acute cystitis without hematuria (3) Sepsis: Qualified Codes: A41.9 - Sepsis, unspecified organism Eddie Martinez DO Jun 14, 2017 13:05
[2017-06-14] MEDS ORDERED: PILL SPLITTER OTHER PRN (13:30)
[2017-06-14] MEDS ORDERED: PHARMACY ORDERED LAB ONE (17:45)
[2017-06-14] MEDS: ATORVASTATIN 80 MG TAB PO SCH (21:43)
[2017-06-15] VITALS: BP 122/74; PULSE 69; RESP 20; TEMP 98.3; O2SAT 97
[2017-06-15 03:43] VITALS: PULSE 74
[2017-06-15 04:00] VITALS: BP 157/72; PULSE 75; RESP 18; TEMP 98.3; O2SAT 94
[2017-06-15] MEDS: metroNIDAZOLE 500 MG INJ 100 ML IV SCH ×2 (04:35→12:31)
[2017-06-15 08:24] VITALS: BP 153/72; PULSE 73; RESP 18; TEMP 98.7; O2SAT 97
[2017-06-15] MEDS ORDERED: LISINOPRIL 5 MG TAB PO SCH (09:00)
[2017-06-15] MEDS: PANTOPRAZOLE SOD 40 MG DELAYED RELEASE TAB PO SCH (09:01)
[2017-06-15] MEDS: METOPROLOL TARTRATE 25 MG TAB PO SCH (09:01)
[2017-06-15] MEDS: CEFUROXIME AXETIL 500 MG TAB PO SCH (09:01)
[2017-06-15] MEDS: ASPIRIN 81 MG CHEW TAB CHEW SCH (09:02)
[2017-06-15] MEDS: HEPARIN SODIUM - SQ 10,000 UNITS/ML VIAL SQ SCH (09:02)
[2017-06-15] MEDS: SODIUM CHLORIDE 0.9% FLUSH 10 ML FLUSH IV FLUSH SCH (09:02)
[2017-06-15] MEDS ORDERED: CEFU1TAB20 PO (11:17)
[2017-06-15] MEDS ORDERED: LISI-519 PO (11:17)
[2017-06-15] MEDS ORDERED: METO25TA3 PO (11:17)
[2017-06-15] MEDS ORDERED: ATOR80TA45 PO (11:17)
[2017-06-15] MEDS ORDERED: ASPI81 CHEW (11:17)
[2017-06-15] MEDS ORDERED: METR-1 PO (11:17)
--- NOTE | 2017-06-15 11:19 | HHI.DCPOC ---
Discharge Care Plan Diagnosis: (1) Rhabdomyolysis (2) Sepsis (3) UTI (urinary tract infection) (4) PNA (pneumonia) (5) Dyspnea (6) Hypoalbuminemia (7) Metabolic encephalopathy (8) NSTEMI (non-ST elevated myocardial infarction) (9) Severe aortic stenosis (10) NIMCO (acute kidney injury) (11) Confusion (12) Agitation Goals to Promote Your Health * To prevent worsening of your condition and complications * To maintain your health at the optimal level Directions to Meet Your Goals Take your medications as prescribed Follow your dietary instruction Follow activity as directed Keep your appointments as scheduled Take your immunizations and boosters as scheduled If your symptoms worsen call your PCP, if no PCP go to Urgent Care Center or Emergency Room Smoking is Dangerous to Your Health. Avoid second hand smoke Call the 24-hour hour crisis hotline for domestic abuse at Qasim Araiza MD Jun 15, 2017 11:19
--- NOTE | 2017-06-15 11:27 | HHI.DS ---
Discharge Summary Admission Date Jun 11, 2017 at 20:06 Discharge Date: Jun 15, 2017 Admitting Diagnosis pneumonia, UTI, rhabdo (1) Metabolic encephalopathy ICD Code: G93.41 - Metabolic encephalopathy Diagnosis: Principal (2) Sepsis ICD Code: A41.9 - Sepsis, unspecified organism Diagnosis: Principal Status: Resolved (3) UTI (urinary tract infection) ICD Code: N39.0 - Urinary tract infection, site not specified Diagnosis: Principal Status: Acute (4) PNA (pneumonia) ICD Code: J18.9 - Pneumonia, unspecified organism Diagnosis: Principal Status: Acute (5) Rhabdomyolysis ICD Code: M62.82 - Rhabdomyolysis Diagnosis: Principal Status: Resolved (6) NSTEMI (non-ST elevated myocardial infarction) ICD Code: I21.4 - Non-ST elevation (NSTEMI) myocardial infarction Diagnosis: Principal Status: Acute (7) Severe aortic stenosis ICD Code: I35.0 - Nonrheumatic aortic (valve) stenosis Diagnosis: Principal Status: Acute (8) NIMCO (acute kidney injury) ICD Code: N17.9 - Acute kidney failure, unspecified Brief History - From Admission History from patient, ER physician communication, patient's son Efren over the phone, and review of medical records. Patient is somewhat of a poor historian. She is awake and alert but she is quite tired and would answer questions whenever she feels like. She was also given Ativan in ER for sedation which limits her history. Patient's son Efren is also not much of a good historian. It was quite hard to reach him throughout the night and when I got a chance to speak to him over the phone, he was quite slow in response. He however reports that patient has no Prior medical history. She used to go to Dr. Ybarra many years ago but has stopped going there. She is not on any medications at home. When asked about her surgical history, he reports that she has had colonoscopies prior. He reports that he was worried about her because she was not eating well. He stated she stopped eating " a long time ago". He then stated that she fell down "a bunch of times" within the past 1 week. He denies any vomiting episodes. He does not think that she had diarrhea. He reports he was the one cleaning her up mostly. He denies any fever. He states that he was not able to bring her by his car because she was not able to stand up. He therefore called 911. Per ER triage note, " pt from home, presents via evac altered. dirty, unkempt, full of urine and stool. smashed banana in hair. per evac, pt lives at home with son." Patient herself tells me that she did fall. She denies every symptoms on review of systems apart from shortness of breath. She also seems to be in pain during my interview and is moaning. However she is not able to pinpoint where. CBC/BMP: 06/14/17 0633 06/14/17 0633 Significant Findings Laboratory Tests Test 06/12/17 17:06 06/13/17 09:06 06/13/17 09:36 06/14/17 06:33 Red Blood Count 3.91 MIL/MM3 (4.00-5.30) 3.96 MIL/MM3 (4.00-5.30) 3.99 MIL/MM3 (4.00-5.30) Hemoglobin 11.4 GM/DL (11.6-15.3) 11.5 GM/DL (11.6-15.3) Hematocrit 32.8 % (35.0-46.0) 33.8 % (35.0-46.0) 33.8 % (35.0-46.0) Platelet Count 129 TH/MM3 (150-450) 148 TH/MM3 (150-450) Neutrophils (%) (Auto) 86.0 % (16.0-70.0) 84.2 % (16.0-70.0) 81.7 % (16.0-70.0) Lymphocytes (%) (Auto) 8.0 % (9.0-44.0) 8.1 % (9.0-44.0) Neutrophils # (Auto) 8.6 TH/MM3 (1.8-7.7) Lymphocytes # (Auto) 0.8 TH/MM3 (1.0-4.8) 0.7 TH/MM3 (1.0-4.8) 0.7 TH/MM3 (1.0-4.8) Blood Urea Nitrogen 28 MG/DL (7-18) 26 MG/DL (7-18) 21 MG/DL (7-18) Random Glucose 73 MG/DL (74-106) Calcium Level 7.9 MG/DL (8.5-10.1) 8.0 MG/DL (8.5-10.1) 7.8 MG/DL (8.5-10.1) Chloride Level 109 MEQ/L (98-107) 108 MEQ/L (98-107) 108 MEQ/L (98-107) Estimat Glomerular Filtration Rate 56 ML/MIN (>89) 58 ML/MIN (>89) 67 ML/MIN (>89) Total Creatine Kinase 1789 U/L (26-192) 986 U/L (26-192) Creatine Kinase MB 10.9 NG/ML (0.5-3.6) 7.4 NG/ML (0.5-3.6) Troponin I 0.89 NG/ML (0.02-0.05) 0.65 NG/ML (0.02-0.05) Albumin 2.3 GM/DL (3.4-5.0) 2.2 GM/DL (3.4-5.0) Aspartate Amino Transf (AST/SGOT) 86 U/L (15-37) 59 U/L (15-37) Carbon Dioxide Level 20.9 MEQ/L (21.0-32.0) PE at Discharge Patient is awake and aler, nad patient not answering questions S1S2 RRR, no MRG Decreased air entry BL patient moves all extremities, not following commands or providing much of a history Pt Condition on Discharge: Stable Discharge Disposition: Discharge to SNF Discharge Instructions DIET: Follow Instructions for: Heart Healthy Diet Activities you can perform: Regular-No Restrictions, See Additionl Instruction Other Activity Instructions: as per PT instructions OOB with assistance Qasim Araiza MD Jun 15, 2017 11:27
[2017-06-15 12:00] VITALS: PULSE 71
[2017-06-15 12:05] VITALS: BP 123/75; PULSE 74; RESP 18; TEMP 98; O2SAT 96
== END 2017-06-15 15:36 | DRG 871 ==
LOC: NEPE 16:17 → NEDA 20:06 → N04B 21:26
PROVIDERS: ADMIT Internal Medicine; ATTEND Hospitalist
DX: A41.9 Sepsis, unspecified organism (principal); G93.41 Metabolic encephalopathy; I21.A1 Myocardial infarction type 2; N17.9 Acute kidney failure, unspecified; J18.9 Pneumonia, unspecified organism; E86.0 Dehydration; M62.82 Rhabdomyolysis; E88.09 Other disorders of plasma-protein metabolism, not elsewhere classified; F03.90 Unspecified dementia, unspecified severity, without behavioral disturbance, psychotic disturbance, mood disturbance, and anxiety; N39.0 Urinary tract infection, site not specified; B96.20 Unspecified Escherichia coli [E. coli] as the cause of diseases classified elsewhere; R09.02 Hypoxemia; I08.0 Rheumatic disorders of both mitral and aortic valves; Z87.891 Personal history of nicotine dependence
CPT/HCPCS: 70450; 71045; 73700; 74177; 76937; 80048; 80053; 81001; 82550; 82552; 83605; 83690; 83735; 84100; 84484; 85025; 85610; 85730; 87040; 87077; 87086; 87186; 93005; 93306; 96365; 96366; 96367; 96375; J1644; J2060; J2543; J3370; J7030; J7050; Q9967